=== PATIENT | female | born 1985 | race Caucasian/White ===

== ENCOUNTER 2024-05-23 06:28 | Emergency (ER) | payer OTHER ==
[2024-05-23 06:38] VITALS: TEMP 98
[2024-05-23] MEDS ORDERED: Sodium Chloride 0.9% 1000 ML 1,000 ML ONE (07:57)
[2024-05-23] MEDS ORDERED: Reglan 10 MG/2 ML ONE (07:57)
[2024-05-23] MEDS ORDERED: ANTIVERT 25 MG ONE (07:57)
[2024-05-23] MEDS: Sodium Chloride 0.9% 1000 ML 1,000 ML IV STA (08:01)
[2024-05-23] MEDS: Reglan 10 MG/2 ML IV ONE (08:01)
[2024-05-23] MEDS: ANTIVERT 25 MG PO ONE (08:01)
[2024-05-23 08:27] LABS: Absolute Neutrophil Ct (ANC) 4.28 x10^3/uL (1.56-6.13); BASOPHIL % 0.5 % (0.1-1.2); Basophil (Absolute #) 0.03 x10^3/uL (0.01-0.08); Eosinophil % 1.2 % (0.7-5.8); Eosinophil (Absolute #) 0.07 x10^3/uL (0.04-0.36); Hematocrit 40.2 % (34.1-44.9); Hemoglobin 13.7 g/dL (11.2-15.7); IMMATURE GRAN # 0.02 x10^3u/L (0.001-0.031); IMMATURE GRAN % 0.3 % (0.001-0.429); Lymphocyte (Absolute #) 1.19 x10^3/uL (1.18-3.74); Lymphocytes % 19.9 % (19.3-51.7); Mean Cell Volume 88.9 fL (79.4-94.8); Mean Corpuscular Hemoglobin 30.3 pg (25.6-32.2); Mean Corpuscular Hgb Concent. 34.1 g/dL (32.2-35.5); Mean Platelet Volume 9.8 fL (9.4-12.3); Monocyte (Absolute #) 0.38 x10^3/uL (0.24-0.86); Monocytes % 6.4 % (4.7-12.5); Neutrophil % 71.7 % (34.0-71.1); Platelet Count 258 x10^3/uL (182-369); Red Blood Count 4.52 x10^6/uL (3.93-5.22); Red Cell Distribution Width 11.9 % (11.7-14.4)
[2024-05-23 08:32] LABS: Appearance Clear (Clear); Bacteria Few /HPF (None Seen); Bilirubin Negative (Negative); Blood Negative (Negative); Epithelial Cells Few /HPF (None Seen); Glucose, Urine Negative (Negative); Hyaline Casts NONE SEEN /LPF (0-2); Ketones Negative (Negative); Leukocyte Esterase Negative (Negative); Nitrite Negative (Negative); Ph 6.5 (4.6-8.0); Protein,Urine Dip Negative (Negative); RBC 0-2 /HPF (0-5); Urobilinogen 0.2 mg/dL (0.2)
[2024-05-23 08:35] LABS: ADD URINE CULTURE? NO (NO)
[2024-05-23 08:38] LABS: ALBUMIN 4.3 g/dL (3.5-5.0); ANION GAP 12.9 MEQ/L (5-15); BILIRUBIN,TOTAL 0.5 mg/dL (0.2-1.3); Calcium 9.4 mg/dL (8.4-10.2); Creatinine 1 0.68 mg/dL (0.52-1.04); EST GLOMERULAR FILTRATION RATE 114.3 ML/MIN; MAGNESIUM 1.9 mg/dL (1.6-2.3); Potassium 3.9 mmol/L (3.5-5.1); Total Protein 7.2 g/dL (6.3-8.2)
[2024-05-23 09:29] VITALS: RESP 17; O2SAT 98
--- NOTE | 2024-05-23 09:30 | XRAY ---
Indication: Dizziness. Multiple contiguous axial images obtained through the head without contrast. Comparison: None Normal appearing brain parenchyma, ventricles, and bony calvarium. Visualized paranasal sinuses and mastoid air cells are clear. Impression: Normal CT head without contrast exam.
--- NOTE | 2024-05-23 10:06 | ERPHSYRPT ---
- History of Present Illness Time Seen by Provider: 05/23/24 08:03 Source: patient, family Exam Limitations: no limitations Patient Subjective Stated Complaint: woke up with dizziness Triage Nursing Assessment: Pt ambulated into ER room 8 with SBA by her spouse. Pt alert and oriented x4. Pt woke up at 5:40 am today with severe dizziness. Pt states, "I had to hold onto the wall to walk I was so dizzy". Pt denies any pain, denies headache. Pt is having some nausea when moving quickly, denies any vomiting. Physician History: 38 years old fairly healthy female presented in the ER with complaint of vertigo. Patient report feeling dizzy/spinning sensation since she woke up around 5:40 AM today. Dizziness/vertiginous symptoms got worse with rapid movements of the head, getting up and better with lying in the bed. Patient reports room spinning sensation but not spinning herself. Denies any numbness tingling or focal weakness. Denies any headache. Does have remote history of vertigo. Denies any chest pain palpitations or shortness of breath associated with it. No blurry vision or difficulty speech. Reports associated nausea but no vomiting. Allergies/Adverse Reactions: acetaminophen [From Darvocet-N] Allergy (Intermediate, Verified 05/23/24 06:39) Hives propoxyphene [From Darvocet-N] Allergy (Intermediate, Verified 05/23/24 06:39) Hives Hx Tetanus, Diphtheria Vaccination/Date Given: Yes Hx Influenza Vaccination/Date Given: No Hx Pneumococcal Vaccination/Date Given: No Travel Risk - International Travel Have you traveled outside of the country in past 3 weeks: No - Emerging Infectious Disease Are you exhibiting symptoms associated with any current EIDs: No - Review of Systems Constitutional: No Symptoms Eyes: No Symptoms Ears, Nose, & Throat: No Symptoms Respiratory: No Symptoms Cardiac: No Symptoms Abdominal/Gastrointestinal: Nausea Genitourinary Symptoms: No Symptoms Musculoskeletal: No Symptoms Skin: No Symptoms Neurological: Dizziness Endocrine: No Symptoms Hematologic/Lymphatic: No Symptoms Immunological/Allergic: No Symptoms - Past Medical History Pertinent Past Medical History: Yes Neurological History: Migraines ENT History: No Pertinent History Cardiac History: No Pertinent History Respiratory History: No Pertinent History Endocrine Medical History: No Pertinent History Musculoskeletal History: No Pertinent History GI Medical History: GERD History: No Pertinent History Psycho-Social History: No Pertinent History Female Reproductive Disorders: No Pertinent History - Past Surgical History Past Surgical History: No - Female History Hx Last Menstrual Period: 2 weeks ago Hx Now: No - Social History Smoking Status: Never smoker Exposure to second hand smoke: No Drug Use: none - Social Determinants of Health Will the patient participate in the screening: Yes Do you worry about a steady place to live?: No Do you have any problems with any of the following?: No known problems In the past 12 months,have you had to go without utilities?: No Transportation Issues: No Has anyone in your support network made you feel unsafe?: No Have you or anyone in your house had to go without enough: No - Nursing Vital Signs Nursing Vital Signs: Initial Vital Signs Temperature 98.0 F 05/23/24 06:37 Pulse Rate 81 05/23/24 06:37 Respiratory Rate 18 05/23/24 06:37 Blood Pressure 128/63 05/23/24 06:37 O2 Sat by Pulse Oximetry 99 05/23/24 06:37 Pain Scale Pain Intensity 0 - [place] Scale Best Eye Response ([place]): (4) open spontaneously Best Verbal Response ([place]): (5) oriented Best Motor Response ([place]): (6) obeys commands Jul[place] Total: 15 - Physical Exam General Appearance: no apparent distress, alert Eye Exam: bilateral eye: normal inspection, PERRL, EOMI Ears, Nose, Throat Exam: normal ENT inspection Neck Exam: normal inspection, non-tender, supple, full range of motion Respiratory: normal breath sounds, lungs clear Cardiovascular: regular rate/rhythm, normal heart sounds Gastrointestinal: soft, normal bowel sounds, No tenderness Back Exam: normal inspection Extremity Exam: normal inspection, normal range of motion, pelvis stable Mental Status: alert, oriented x 3, 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 Exam: normal hearing, normal speech, PERRL Coordination/Gait: normal finger to nose, normal gait, normal cerebellar function, negative Romberg's sign Motor/Sensory: no motor deficit, no sensory deficit, no pronator drift, negative Babinski's sign DTR: bicep (R): 2+, bicep (L): 2+, knee (R): 2+, knee (L): 2+ Skin Exam: normal color SpO2 Interpretation: normal SpO2: 98 O2 Delivery: Room Air - Course EKG Interpreted by Me: RATE ([id number]), Sinus Rhythm, NORMAL AXIS, NORMAL INTERVALS, NORMAL QRS Ordered Tests: Active Orders 24 hr Category Date Time Status Kitchen Cleaner STAT Care 05/23/24 07:51 Completed EKG-ER Only STAT Care 05/23/24 07:50 Completed Orthostatic Vital Signs STAT Care 05/23/24 07:50 Completed Pulse Oximetry (ED) STAT Care 05/23/24 07:50 Completed HEAD WITHOUT CONTRAST [CT] Stat Exams 05/23/24 07:50 Completed CBC W DIFF Stat Lab 05/23/24 08:10 Completed CMP Stat Lab 05/23/24 08:10 Completed MAGNESIUM Stat Lab 05/23/24 08:10 Completed TROPONIN Q4H Lab 05/23/24 08:10 Completed UA W/RFX UR CULTURE Stat Lab 05/23/24 08:23 Completed Medication Summary Discontinued Medications Generic Name Dose Route Start Last Admin Trade Name Freq PRN Reason Stop Dose Admin Sodium Chloride 1,000 mls @ 999 mls/hr 05/23/24 07:50 05/23/24 09:23 Sodium Chloride 0.9% 1000 Ml IV 05/23/24 08:50 Infused .Q1H1M STA Infusion Sodium Chloride Confirm 05/23/24 07:57 Sodium Chloride 0.9% 1000 Ml Administered 05/23/24 07:58 Dose 1,000 mls @ ud .ROUTE .STK-MED ONE Meclizine HCl 25 mg 05/23/24 07:56 05/23/24 08:01 Meclizine Hcl 25 Mg Tablet PO 05/23/24 07:57 25 mg STAT ONE Administration Meclizine HCl Confirm 05/23/24 07:57 Meclizine Hcl 25 Mg Tablet Administered 05/23/24 07:58 Dose 25 mg .ROUTE .STK-MED ONE Metoclopramide HCl 10 mg 05/23/24 07:50 05/23/24 08:01 Metoclopramide Hcl 10 Mg/2 Ml Vial IV 05/23/24 07:51 10 mg STAT ONE Administration Metoclopramide HCl Confirm 05/23/24 07:57 Metoclopramide Hcl 10 Mg/2 Ml Vial Administered 05/23/24 07:58 Dose 10 mg .ROUTE .STK-MED ONE Lab/Rad Data: Laboratory Result Diagrams 05/23/24 08:10 05/23/24 08:10 Laboratory Results 05/23/24 05/23/24 05/23/24 Range/Units 08:23 08:10 08:10 WBC (3.98-10.04) x10^3/uL RBC (3.93-5.22) x10^6/uL Hgb (11.2-15.7) g/dL Hct (34.1-44.9) % MCV (79.4-94.8) fL MCH (25.6-32.2) pg MCHC (32.2-35.5) g/dL RDW (11.7-14.4) % Plt Count (182-369) x10^3/uL MPV (9.4-12.3) fL Gran % (34.0-71.1) % Immature Gran % (Auto) (0.001-0.429) % Nucleat RBC Rel Count (0.00-0.2) % Eos # (Auto) (0.04-0.36) x10^3/uL Immature Gran # (Auto) (0.001-0.031) x10^3u/L Absolute Lymphs (auto) (1.18-3.74) x10^3/uL Absolute Monos (auto) (0.24-0.86) x10^3/uL Absolute Nucleated RBC (0.00-0.012) x10^3u/L Lymphocytes % (19.3-51.7) % Monocytes % (4.7-12.5) % Eosinophils % (0.7-5.8) % Basophils % (0.1-1.2) % Absolute Granulocytes (1.56-6.13) x10^3/uL Basophils # (0.01-0.08) x10^3/uL Sodium 139 (135-145) mmol/L Potassium 3.9 (3.5-5.1) mmol/L Chloride 107 (98-107) mmol/L Carbon Dioxide 24 (22-30) mmol/L Anion Gap 12.9 (5-15) MEQ/L BUN 14 (7-17) mg/dL Creatinine 0.68 (0.52-1.04) mg/dL Estimated GFR 114.3 ML/MIN Glucose 103 (74-106) mg/dL Calcium 9.4 (8.4-10.2) mg/dL Magnesium 1.9 (1.6-2.3) mg/dL Total Bilirubin 0.50 (0.2-1.3) mg/dL AST 22 (14-36) U/L ALT 16 (0-35) U/L Alkaline Phosphatase 61 (38-126) U/L Troponin I < 0.012 (0.000-0.033) ng/mL Serum Total Protein 7.2 (6.3-8.2) g/dL Albumin 4.3 (3.5-5.0) g/dL Urine Color Yellow (Yellow) Urine Appearance Clear (Clear) Urine pH 6.5 (4.6-8.0) Ur Specific [place] 1.020 (1.005-1.030) Urine Protein Negative (Negative) Urine Glucose (UA) Negative (Negative) mg/dL Urine Ketones Negative (Negative) Urine Blood Negative (Negative) Urine Nitrite Negative (Negative) Urine Bilirubin Negative (Negative) Urine Urobilinogen 0.2 (0.2) mg/dL Ur Leukocyte Esterase Negative (Negative) U Hyaline Cast (Auto) NONE SEEN (0-2) /LPF Urine Microscopic RBC 0-2 (0-5) /HPF Urine Microscopic WBC 6-10 A (0-5) /HPF Ur Epithelial Cells Few (None Seen) /HPF Urine Bacteria Few A (None Seen) /HPF Urine Culture Reflexed NO (NO) 05/23/24 Range/Units 08:10 WBC 6.0 (3.98-10.04) x10^3/uL RBC 4.52 (3.93-5.22) x10^6/uL Hgb 13.7 (11.2-15.7) g/dL Hct 40.2 (34.1-44.9) % MCV 88.9 (79.4-94.8) fL MCH 30.3 (25.6-32.2) pg MCHC 34.1 (32.2-35.5) g/dL RDW 11.9 (11.7-14.4) % Plt Count 258 (182-369) x10^3/uL MPV 9.8 (9.4-12.3) fL Gran % 71.7 H (34.0-71.1) % Immature Gran % (Auto) 0.3 (0.001-0.429) % Nucleat RBC Rel Count 0.0 (0.00-0.2) % Eos # (Auto) 0.07 (0.04-0.36) x10^3/uL Immature Gran # (Auto) 0.02 (0.001-0.031) x10^3u/L Absolute Lymphs (auto) 1.19 (1.18-3.74) x10^3/uL Absolute Monos (auto) 0.38 (0.24-0.86) x10^3/uL Absolute Nucleated RBC 0.00 (0.00-0.012) x10^3u/L Lymphocytes % 19.9 (19.3-51.7) % Monocytes % 6.4 (4.7-12.5) % Eosinophils % 1.2 (0.7-5.8) % Basophils % 0.5 (0.1-1.2) % Absolute Granulocytes 4.28 (1.56-6.13) x10^3/uL Basophils # 0.03 (0.01-0.08) x10^3/uL Sodium (135-145) mmol/L Potassium (3.5-5.1) mmol/L Chloride (98-107) mmol/L Carbon Dioxide (22-30) mmol/L Anion Gap (5-15) MEQ/L BUN (7-17) mg/dL Creatinine (0.52-1.04) mg/dL Estimated GFR ML/MIN Glucose (74-106) mg/dL Calcium (8.4-10.2) mg/dL Magnesium (1.6-2.3) mg/dL Total Bilirubin (0.2-1.3) mg/dL AST (14-36) U/L ALT (0-35) U/L Alkaline Phosphatase (38-126) U/L Troponin I (0.000-0.033) ng/mL Serum Total Protein (6.3-8.2) g/dL Albumin (3.5-5.0) g/dL Urine Color (Yellow) Urine Appearance (Clear) Urine pH (4.6-8.0) Ur Specific [place] (1.005-1.030) Urine Protein (Negative) Urine Glucose (UA) (Negative) mg/dL Urine Ketones (Negative) Urine Blood (Negative) Urine Nitrite (Negative) Urine Bilirubin (Negative) Urine Urobilinogen (0.2) mg/dL Ur Leukocyte Esterase (Negative) U Hyaline Cast (Auto) (0-2) /LPF Urine Microscopic RBC (0-5) /HPF Urine Microscopic WBC (0-5) /HPF Ur Epithelial Cells (None Seen) /HPF Urine Bacteria (None Seen) /HPF Urine Culture Reflexed (NO) - Progress Progress: improved, re-examined Progress Note: 05/23/24 10:04 38 years old is evaluated in the ER for peripheral vertiginous symptoms. Patient has nonfocal neuroexam, her symptoms are reproducible with movements. Negative neuroexam including cerebellar signs. CT head is negative. EKG is normal sinus rhythm with no acute ischemic changes. Normal white count, unremarkable chemistries including troponin. Given fluids and symptomatic treatment with Reglan and meclizine, on reevaluation she is symptom-free. I do not think patient needs MRI as her symptoms seems to be peripheral. Will give a prescription of meclizine to go home. Discussed signs symptoms of worsening ne maren return to ER which she seemed understanding. Stable for discharge. Counseled pt/family regarding: lab results, diagnosis, need for follow-up, rad results Medical Desision Making - Independent Historian Additional History obtained from: Spouse - Diagnostic Testing Diagnostic test were ordered, analyzed, and reviewed by me: Yes Radiological Interpretation: Reviewed by me - Risk of complications The pt has a mod risk of morbidity or mortality based on: Need for prescription drug management - Departure Departure Disposition: Home Clinical Impression: Peripheral vertigo Condition: Stable Critical Care Time: No Referrals: BREANNE CHAUDHARY [Primary Care Provider] - Follow up with PCP 1 day Instructions: Vertigo (a Type of Dizziness) (DC) Additional Instructions: Plenty of fluids to keep yourself well-hydrated. Take meclizine as needed. Follow-up with primary care for reevaluation. Return to ER for any worsening of dizziness, lightheadedness or if having chest pain palpitation/shortness of spenser th etc. Prescriptions: Meclizine HCl 25 mg [Antivert 25 mg] 25 mg PO Q8HPRN PRN #12 tablet PRN Reason: Dizziness
[2024-05-23 10:10] VITALS: PULSE 68
[2024-05-23 10:20] VITALS: BP 107/67
== END 2024-05-23 10:19 | disposition home or self-care (01) ==
LOC: ED 06:28 → EDBD 06:28 → ED 10:19
DX: H81.399 Other peripheral vertigo, unspecified ear (principal); R11.0 Nausea; Z79.899 Other long term (current) drug therapy
CPT/HCPCS: 36000; 36415; 70450; 80053; 81001; 83735; 84484; 85025; 93005; 93041; 94760; 96360; 96374; 99284; A9270-GY

== ENCOUNTER 2025-07-28 09:31 | Emergency (ER) | payer OTHER ==
[2025-07-28 09:54] VITALS: TEMP 97.6
[2025-07-28] MEDS ORDERED: Zofran 4 MG/2 ML VIAL ONE ×2 (10:16→12:11)
[2025-07-28] MEDS ORDERED: BENADRYL 50 MG/ML ONE (10:16)
[2025-07-28] MEDS: Zofran 4 MG/2 ML VIAL IV ONE ×2 (10:20→12:14)
[2025-07-28] MEDS: BENADRYL 50 MG/ML IV ONE (10:22)
--- NOTE | 2025-07-28 10:22 | ERPHSYRPT ---
- History of Present Illness Time Seen by Provider: 07/28/25 09:40 Source: patient Patient Subjective Stated Complaint: C/O N/V diarrhea since , 07/24/25. Had chemo treatments on 07/25/25 Triage Nursing Assessment: Patient ambulated back to ER. She is alert and oriented. Pale. Lips are dry and cracked. NO SOB. Denies pain but states, "my stomach is a bit sore" indicating the muscles from vomitting. SANG HOLLY. Physician History: This is a 40-year-old female with stage III melanoma who had immunotherapy Monday 3 days ago and has been having nausea vomiting and watery diarrhea profusely. No focal abdominal pain. No fever or chills. has had some similar symptoms without diarrhea. His symptoms have resolved. No other sick contacts. Patient completed a Medrol dose pack over a week ago. Not on current steroids. No chest pain or shortness of breath. Patient does note that she recently had low potassium and was diagnosed with hyperthyroid and started on medication but has not been able to keep them down. Allergies/Adverse Reactions: acetaminophen [From Darvocet-N] Allergy (Intermediate, Verified 07/28/25 09:46) Hives propoxyphene [From Darvocet-N] Allergy (Intermediate, Verified 07/28/25 09:46) Hives Home Medications: ALPRAZolam [Alprazolam] 0.5 mg PO TID PRN 07/28/25 [History] Ibuprofen 200 mg [Motrin 200 mg] 200 mg PO Q6H PRN PRN 07/28/25 [History] Levothyroxine Sodium 50 Mcg [Synthroid 50 Mcg] 50 mcg PO DAILY 07/28/25 [History] Potassium Chloride 20 meq PO DAILY 07/28/25 [History] Prochlorperazine Maleate [Compazine] 10 mg PO Q6H PRN PRN 07/28/25 [History] ondansetron HCL [Ondansetron HCl] 8 mg PO Q8H PRN PRN 07/28/25 [History] Hx Tetanus, Diphtheria Vaccination/Date Given: Yes Hx Influenza Vaccination/Date Given: No Hx Pneumococcal Vaccination/Date Given: No Immunizations Up to Date: Yes Travel Risk - International Travel Have you traveled outside of the country in past 3 weeks: No - Emerging Infectious Disease Are you exhibiting symptoms associated with any current EIDs: Yes Symptoms: Diarrhea, Vomitting - Review of Systems All Other Systems: Reviewed and Negative (As per HPI otherwise negative) - Past Medical History Pertinent Past Medical History: Yes Neurological History: Migraines ENT History: No Pertinent History Cardiac History: No Pertinent History Respiratory History: No Pertinent History Musculoskeletal History: No Pertinent History GI Medical History: GERD History: No Pertinent History Psycho-Social History: No Pertinent History Female Reproductive Disorders: No Pertinent History Other Medical History: Melonamo with mets - Past Surgical History Past Surgical History: Yes Other Surgical History: lymph nodes removed near groin - Female History Hx Last Menstrual Period: One week ago Hx Now: No - Social History Smoking Status: Never smoker Exposure to second hand smoke: No Drug Use: none - Social Determinants of Health Will the patient participate in the screening: Yes Do you worry about a steady place to live?: No Do you have any problems with any of the following?: No known problems In the past 12 months,have you had to go without utilities?: No Transportation Issues: No Has anyone in your support network made you feel unsafe?: No Have you or anyone in your house had to go w/o enough food: No - Nursing Vital Signs Nursing Vital Signs: Initial Vital Signs Temperature 97.6 F 07/28/25 09:40 Pulse Rate 116 H 07/28/25 09:40 Respiratory Rate 23 07/28/25 09:40 Blood Pressure 134/86 07/28/25 09:40 O2 Sat by Pulse Oximetry 97 07/28/25 09:40 Pain Scale Pain Intensity 0 - Physical Exam SpO2: 97 Comments: 07/28/25 10:26 General: Well-nourished well-developed. No apparent distress. HEENT: Normocephalic atraumatic no obvious facial or neck deformity or injury. Dry mucous membranes. Neck: Supple. No deformity or mass noted. CV: RRR NL Perfusion. No edema Resp: No Respiratory distress or adventitious breath sounds Abd: ND SNT MSK: No deformity or TTP Neuro: Alert and Maynard x4. No gross focal neurologic changes Psych: No SI, HI or grave disability Ordered Tests: Active Orders 24 hr Category Date Time Status CBC W DIFF Stat Lab 07/28/25 10:00 Completed CMP Stat Lab 07/28/25 10:00 Completed MAGNESIUM Stat Lab 07/28/25 10:00 Completed Manual Differential NC Stat Lab 07/28/25 10:00 Completed TSH, 3RD Generation Stat Lab 07/28/25 10:00 Completed Medication Summary Generic Name Dose Route Start Last Admin Trade Name Freq PRN Reason Stop Dose Admin Potassium Chloride 20 meq in 100 mls @ 50 mls/hr 07/28/25 10:27 07/28/25 10:37 Potassium Chloride 20 Meq In Water 100ml IV 07/28/25 12:26 50 mls/hr STAT ONE Administration Sodium Chloride 1,000 mls @ 500 mls/hr 07/28/25 11:30 07/28/25 11:33 Sodium Chloride 0.9% 1000 Ml IV 07/28/25 13:00 500 mls/hr .Q2H LEANNE Administration Discontinued Medications Generic Name Dose Route Start Last Admin Trade Name Isaccq PRN Reason Stop Dose Admin Diphenhydramine HCl 25 mg 07/28/25 10:15 07/28/25 10:22 Diphenhydramine Hcl 50 Mg/Ml Vial IV 07/28/25 10:16 25 mg STAT ONE Administration Diphenhydramine HCl Confirm 07/28/25 10:16 Diphenhydramine Hcl 50 Mg/Ml Vial Administered 07/28/25 10:17 Dose 50 mg .ROUTE .STK-MED ONE Sodium Chloride 1,000 mls @ 999 mls/hr 07/28/25 10:15 07/28/25 11:24 Sodium Chloride 0.9% 1000 Ml IV 07/28/25 11:15 Infused .Q1H1M STA Infusion Sodium Chloride Confirm 07/28/25 10:16 Sodium Chloride 0.9% 1000 Ml Administered 07/28/25 10:17 Dose 1,000 mls @ ud .ROUTE .STK-MED ONE Potassium Chloride Confirm 07/28/25 10:33 Potassium Chloride 20 Meq In Water 100ml Administered 07/28/25 10:34 Dose 100 mls @ ud IV .STK-MED ONE Ondansetron HCl 4 mg 07/28/25 10:15 07/28/25 10:20 Ondansetron Hcl 4 Mg/2 Ml Vial IV 07/28/25 10:16 4 mg STAT ONE Administration Ondansetron HCl Confirm 07/28/25 10:16 Ondansetron Hcl 4 Mg/2 Ml Vial Administered 07/28/25 10:17 Dose 4 mg .ROUTE .[facility] ONE Lab/Rad Data: Laboratory Result Diagrams 07/28/25 10:00 07/28/25 10:00 Laboratory Results 07/28/25 07/28/25 07/28/25 Range/Units 10:00 10:00 10:00 WBC 13.8 H (3.98-10.04) x10^3/uL RBC 5.77 H (3.93-5.22) x10^6/uL Hgb 17.0 H (11.2-15.7) g/dL Hct 52.1 H (34.1-44.9) % MCV 90.3 (79.4-94.8) fL MCH 29.5 (25.6-32.2) pg MCHC 32.6 (32.2-35.5) g/dL RDW 15.0 H (11.7-14.4) % Plt Count 346 (182-369) x10^3/uL MPV 10.0 (9.4-12.3) fL Segmented Neutrophils 55 (34.0-71.1) % Band Neutrophils 19 H (0.0-2.0) % Lymphocytes (Manual) 7 L (19.3-51.7) % Monocytes (Manual) 17 H (4.7-12.5) % Eosinophils (Manual) 2 (0.7-5.8) % Platelet Estimate NORMAL (NORMAL) RBC Morphology NORMAL Sodium 138 (135-145) mmol/L Potassium 4.1 (3.5-5.1) mmol/L Chloride 103 (98-107) mmol/L Carbon Dioxide 17 L (22-30) mmol/L Anion Gap 22.0 H (5-15) MEQ/L BUN 12 (7-17) mg/dL Creatinine 0.92 (0.52-1.04) mg/dL Estimated GFR 80.7 ML/MIN Glucose 126 H (74-106) mg/dL Calcium 8.9 (8.4-10.2) mg/dL Magnesium 2.0 (1.6-2.3) mg/dL Total Bilirubin 0.40 (0.2-1.3) mg/dL AST 24 (14-36) U/L ALT 20 (0-35) U/L Alkaline Phosphatase 105 (38-126) U/L Serum Total Protein 7.3 (6.3-8.2) g/dL Albumin 4.1 (3.5-5.0) g/dL Free T4 0.21 L (0.78-2.19) ng/dL TSH 3rd Generation 46.561 H (0.470-4.680) mIU/L - Progress Progress: improved Progress Note: 07/28/25 11:56 Patient likely having symptoms due to her immunotherapy vs possible infectious causes had some similar symptoms.. Her electrolytes appear normal and the potassium initially started because of the long time it takes to infuse will be discontinued. She predictably received approximately 10 mill equivalents and is not considered clinically significant. She had reported that she was hypokalemic on K+ supplement so she may have repleted ther low state. Her TSH however is greatly elevated with a depressed T4. She was started on Synthroid and will need to take this. She otherwise is has a nonacute abdomen and can call her oncologist upon discharge. She was given 2 L of IV fluids for dehydration. Noted metabolic acidosis consistent with patient's hyperemesis. She does not appear to have any significant underlying cause for this other than the vomiting. Plan for discharge when IV fluid complete with home Zofran. 07/28/25 11:58 07/28/25 11:58 07/28/25 12:03 Noted repeat blood pressure systolic of 110 with heart rate in the 80s. Patient doing very well. 07/28/25 12:04 The patient's condition was discussed with themselves and/or family members in great detail. Precautions are given and need to return or call 911 immediately for any changes or worsening are discussed. Instructions on patient's condition and noting that conditions can change or worsen and that diagnosis are presumptive and can evolve are discussed. All questions were answered. All concerns addressed at this time - Departure Departure Disposition: Home Clinical Impression: Hyperemesis, Diarrhea, Dehydration, Hypothyroidism Condition: Stable Critical Care Time: No Referrals: SARI MONTES MD [Primary Care Provider, ONCOLOGY] - Follow up/PCP as directed Instructions: Nausea -- Adult, Vomiting -- Adult, Dehydration in adults - ED discharge instructions, Hypothyroidism (underactive thyroid) Additional Instructions: Call your oncologist today upon discharge to arrange close follow-up. Your potassium and magnesium were in the normal range so any further replacement would not be necessary. You do have evidence of dehydration. Nausea and vomiting will be sent home on vomiting medication. Is important you follow-up closely with your oncologist as noted. Your thyroid level is noted to be very low meaning you do need to be taking replacement with Synthroid as been as been prescribed. Closely follow this with your doctor. You have been evaluated for an emergency medical condition. At this time, given the current history and events presented, the examination conducted and any possible testing you may have had, you have been given a presumptive diagnosis based on the current information is obtained. Your discharge diagnosis is presumptive and not necessarily definitive. Medical conditions present in various stages very often without all the symptoms or findings described in medical literature. Other symptoms, concerns or conditions may arise and your diagnoses may evolve or change and/or your condition could potentially worsen after the time of disposition or discharge. You have been given a presumptive diagnosis and your condition appears to be stable, but your medical issues can change or worsen. If there is worsening of your condition including difficulty breathing, swallowing, speaking, chest pain or pressure, intractable vomiting, worsening or changing mental status, numbness, tingling or weakness of your body or arms or legs, thoughts or plans of harming yourself or others, or any other concerns, call 911 and/or return immediately to the closest emergency department. It is important you follow-up with your doctor on the next business day. Call your doctor, or the referral provided if you do not have a doctor, when they open to schedule a follow-up appointment in the next 1 or latest 2 days. Please refer to the attached sheet. If you do not have primary care doctor, you can call the [facility] referral line at [phone]. Return immediately if your symptoms worsen or if you are unable to obtain further care. My team and I thank you for choosing the [facility] Emergency Department emergency healthcare needs. We wish you a speedy recovery. Very respectfully, Dr. Cassia Wagner M.D. [place] [employer] Medicine Board-certified Emergency Physician Prescriptions: Ondansetron ODT 4 MG [Zofran Odt 4 mg] 4 mg PO Q8H PRN #20 tablet PRN Reason: Nausea/Vomiting
[2025-07-28 10:29] LABS: Hematocrit 52.1 % (34.1-44.9); Hemoglobin 17.0 g/dL (11.2-15.7); Mean Corpuscular Hemoglobin 29.5 pg (25.6-32.2); Mean Corpuscular Hgb Concent. 32.6 g/dL (32.2-35.5); Platelet Count 346 x10^3/uL (182-369); Red Blood Count 5.77 x10^6/uL (3.93-5.22); White Blood Count 13.8 x10^3/uL (3.98-10.04)
[2025-07-28] MEDS ORDERED: POTASSIUM CHLORIDE 20 mEq IN WATER 100ML 100 ML IV ONE (10:33)
[2025-07-28] MEDS: POTASSIUM CHLORIDE 20 mEq IN WATER 100ML 20 MEQ/100 ML BAG IV ONE (10:37)
[2025-07-28 11:13] LABS: Calcium 8.9 mg/dL (8.4-10.2); Carbon Dioxide 17.0 mmol/L (22-30); Creatinine 1 0.92 mg/dL (0.52-1.04); EST GLOMERULAR FILTRATION RATE 80.7 ML/MIN; Glucose 126.0 mg/dL (74-106); Potassium 4.1 mmol/L (3.5-5.1); SGOT/AST 24.0 U/L (14-36); SGPT/ALT 20.0 U/L (0-35); Total Protein 7.3 g/dL (6.3-8.2)
[2025-07-28 11:42] LABS: BAND 19 % (0.0-2.0); Total Cells Counted 100
[2025-07-28] MEDS ORDERED: MORPHINE SULFATE 4 MG INJ ONE (12:11)
[2025-07-28] MEDS: MORPHINE SULFATE 4 MG INJ IV ONE (12:14)
[2025-07-28 12:39] VITALS: O2SAT 99
[2025-07-28 13:09] VITALS: BP 103/58; PULSE 84; RESP 23
== END 2025-07-28 13:49 | disposition home or self-care (01) ==
LOC: ED 09:31
DX: R11.2 Nausea with vomiting, unspecified (principal); R19.7 Diarrhea, unspecified; E86.0 Dehydration; E03.9 Hypothyroidism, unspecified; Z79.899 Other long term (current) drug therapy

== ENCOUNTER 2025-08-01 16:58 | Observation (INO) | payer OTHER ==
--- NOTE | 2025-08-01 17:01 | ERPHSYRPT ---
- History of Present Illness Time Seen by Provider: 08/01/25 17:01 Historian: patient Exam Limitations: no limitations Physician History: This a 40-year-old white female patient brought in by private vehicle accompanied by her spouse with nausea, vomiting and watery diarrhea. Patient has stage III skin melanoma (mets present) and has had 3 doses of immunotherapy. The most recent dose was 1 week ago. Patient was seen in our emergency department 4 days ago on diagnosed with hyperemesis, dehydration, hypothyroidism and diarrhea. I reviewed that hospital emergency department stay. Patient felt better for approximately 2 days but then began having symptoms that worsened today. Patient's primary care provider and oncologist are out of the [facility] system. Patient does have a history of hypothyroidism. Those values were off on the last visit. Patient was able to take her Synthroid the last 4 days and the most recent tablet this morning and held it down. Patient has a history of migraine headache and gastroesophageal reflux disease. Patient denies chest pain and she denies shortness of breath. Timing/Duration: day(s) (Symptoms intermittently for several days), worse (Symptoms worse today) Quality: cramping (Mild generalized) Abdominal Pain Onset Location: generalized abdomen Pain Radiation: no radiation Severity of Pain-Max: mild Severity of Pain-Current: mild Modifying Factors: Improves With: vomiting, other (Watery diarrhea) Associated Symptoms: diarrhea, loss of appetite, nausea, vomiting, weakness Previous symptoms: same symptoms as today, recently seen, recently treated Allergies/Adverse Reactions: acetaminophen [From Darvocet-N] Allergy (Intermediate, Verified 08/01/25 17:10) Hives propoxyphene [From Darvocet-N] Allergy (Intermediate, Verified 08/01/25 17:10) Hives Home Medications: ALPRAZolam [Alprazolam] 0.5 mg PO TID PRN 07/28/25 [History] Ibuprofen 200 mg [Motrin 200 mg] 200 mg PO Q6H PRN PRN 07/28/25 [History] Levothyroxine Sodium 50 Mcg [Synthroid 50 Mcg] 50 mcg PO DAILY 07/28/25 [History] Potassium Chloride 20 meq PO DAILY 07/28/25 [History] ondansetron HCL [Ondansetron HCl] 8 mg PO Q8H PRN PRN 07/28/25 [History] Lactobacillus Rhamnosus GG [Culturelle] 1 cap PO DAILY PRN PRN 08/01/25 [History] Loperamide HCl [Imodium A-D] 2 mg PO DAILY PRN PRN 08/01/25 [History] Hx Tetanus, Diphtheria Vaccination/Date Given: Yes Hx Influenza Vaccination/Date Given: No Hx Pneumococcal Vaccination/Date Given: No Travel Risk - International Travel Have you traveled outside of the country in past 3 weeks: No - Emerging Infectious Disease Are you exhibiting symptoms associated with any current EIDs: No Symptoms: Diarrhea, Vomitting - Review of Systems Constitutional: Weakness Eyes: No Symptoms Ears, Nose, & Throat: No Symptoms Respiratory: No Symptoms Cardiac: No Symptoms Abdominal/Gastrointestinal: Abdominal Pain (Mild generalized cramping), Nausea, Vomiting, Diarrhea, Appetite Changes Genitourinary Symptoms: No Symptoms Musculoskeletal: No Symptoms Skin: No Symptoms Neurological: No Symptoms Psychological: No Symptoms Endocrine: No Symptoms Hematologic/Lymphatic: No Symptoms Immunological/Allergic: No Symptoms All Other Systems: Reviewed and Negative - Past Medical History Pertinent Past Medical History: Yes Neurological History: Migraines ENT History: No Pertinent History Cardiac History: No Pertinent History Respiratory History: No Pertinent History Musculoskeletal History: No Pertinent History GI Medical History: GERD History: No Pertinent History Psycho-Social History: No Pertinent History Female Reproductive Disorders: No Pertinent History Other Medical History: Melonamo with mets - Past Surgical History Past Surgical History: Yes Other Surgical History: lymph nodes removed near groin - Female History Hx Last Menstrual Period: 2 weeks ago - Social History Smoking Status: Never smoker Exposure to second hand smoke: No Drug Use: none - Social Determinants of Health Will the patient participate in the screening: Yes Do you worry about a steady place to live?: No In the past 12 months,have you had to go without utilities?: No Transportation Issues: No Has anyone in your support network made you feel unsafe?: No Have you or anyone in your house had to go w/o enough food: No - Nursing Vital Signs Nursing Vital Signs: Initial Vital Signs Temperature 97.4 F 08/01/25 17:02 Pulse Rate 96 H 08/01/25 17:02 Respiratory Rate 18 08/01/25 17:02 Blood Pressure 127/88 08/01/25 17:02 O2 Sat by Pulse Oximetry 97 08/01/25 17:02 Pain Scale Pain Intensity 5 - Physical Exam General Appearance: no apparent distress, alert, thin Eye Exam: PERRL/EOMI, eyes nml inspection Ears, Nose, Throat Exam: dry mucous membranes Neck Exam: normal inspection, non-tender, supple, full range of motion Respiratory Exam: normal breath sounds, lungs clear, airway intact, No chest tenderness, No respiratory distress Cardiovascular Exam: regular rate/rhythm, normal heart sounds, normal peripheral pulses Gastrointestinal/Abdomen Exam: soft, normal bowel sounds, No tenderness Pelvic Exam: not done Rectal Exam: not done Back Exam: normal inspection, normal range of motion, No CVA tenderness, No vertebral tenderness Extremity Exam: normal inspection, normal range of motion, pelvis stable Neurologic Exam: alert, oriented x 3, cooperative, oracle analyst II-XII nml as tested, nml cerebellar function, nml station & gait, sensation nml Skin Exam: normal color, warm, dry Lymphatic Exam: No adenopathy SpO2 Interpretation: normal O2 Delivery: Room Air - Course Nursing assessment & vital signs reviewed: Yes Ordered Tests: Active Orders 24 hr Category Date Time Status IV Insertion STAT Care 08/01/25 17:29 Active Telemetry q4h Care 08/01/25 18:46 Active CBC W DIFF Stat Lab 08/01/25 17:35 Completed CMP Stat Lab 08/01/25 17:35 Completed CULTURE,URINE Stat Lab 08/01/25 18:52 Received LIPASE Stat Lab 08/01/25 17:35 Completed MAGNESIUM Stat Lab 08/01/25 17:35 Completed Manual Differential NC Stat Lab 08/01/25 17:35 Completed TSH [TSH, 3RD Generation] Stat Lab 08/01/25 17:35 Completed UA W/RFX UR CULTURE Stat Lab 08/01/25 18:52 Completed Medication Summary Generic Name Dose Route Start Last Admin Trade Name Freq PRN Reason Stop Dose Admin Lactated Ringer's 1,000 mls @ 125 mls/hr 08/01/25 19:43 08/01/25 20:46 Lactated Ringers IV 08/02/25 03:42 300 mls/hr .Q8H STA Infusion Discontinued Medications Generic Name Dose Route Start Last Admin Trade Name Freq PRN Reason Stop Dose Admin Sodium Chloride 1,000 mls @ 999 mls/hr 08/01/25 17:29 08/01/25 18:36 Sodium Chloride 0.9% 1000 Ml IV 08/01/25 18:29 Infused .Q1H1M STA Infusion Sodium Chloride Confirm 08/01/25 17:34 Sodium Chloride 0.9% 1000 Ml Administered 08/01/25 17:35 Dose 1,000 mls @ ud .ROUTE .STK-MED ONE Sodium Chloride 1,000 mls @ 999 mls/hr 08/01/25 18:27 08/01/25 19:50 Sodium Chloride 0.9% 1000 Ml IV 08/01/25 19:27 Infused .Q1H1M STA Infusion Sodium Chloride Confirm 08/01/25 18:42 Sodium Chloride 0.9% 1000 Ml Administered 08/01/25 18:43 Dose 1,000 mls @ ud .ROUTE .STK-MED ONE Potassium Chloride 20 meq in 100 mls @ 50 mls/hr 08/01/25 18:46 08/01/25 18:56 Potassium Chloride 20 Meq In Water 100ml IV 08/01/25 20:45 50 mls/hr STAT ONE Administration Potassium Chloride Confirm 08/01/25 18:54 Potassium Chloride 20 Meq In Water 100ml Administered 08/01/25 18:55 Dose 100 mls @ ud IV .STK-MED ONE Lactated Ringer's Confirm 08/01/25 19:44 Lactated Ringers Administered 08/01/25 19:45 Dose 1,000 mls @ ud IV .STK-MED ONE Morphine Sulfate 4 mg 08/01/25 17:29 08/01/25 17:37 Morphine Sulfate 4 Mg/Ml Injection IV 08/01/25 17:30 4 mg STAT ONE Administration Morphine Sulfate Confirm 08/01/25 17:34 Morphine Sulfate 4 Mg/Ml Injection Administered 08/01/25 17:35 Dose 4 mg .ROUTE .STK-MED ONE Ondansetron HCl 4 mg 08/01/25 17:29 08/01/25 17:37 Ondansetron Hcl 4 Mg/2 Ml Vial IV 08/01/25 17:30 4 mg STAT ONE Administration Ondansetron HCl Confirm 08/01/25 17:33 Ondansetron Hcl 4 Mg/2 Ml Vial Administered 08/01/25 17:34 Dose 4 mg .ROUTE .STK-MED ONE Pantoprazole Sodium 40 mg 08/01/25 17:29 08/01/25 17:36 Pantoprazole 40 Mg Vial IV 08/01/25 17:30 40 mg STAT ONE Administration Pantoprazole Sodium Confirm 08/01/25 17:33 Pantoprazole 40 Mg Vial Administered 08/01/25 17:34 Dose 40 mg IV .K-MED ONE Lab/Rad Data: Laboratory Result Diagrams 08/01/25 17:35 08/01/25 17:35 Laboratory Results 08/01/25 08/01/25 08/01/25 Range/Units 18:52 17:35 17:35 WBC (3.98-10.04) x10^3/uL RBC (3.93-5.22) x10^6/uL Hgb (11.2-15.7) g/dL Hct (34.1-44.9) % MCV (79.4-94.8) fL MCH (25.6-32.2) pg MCHC (32.2-35.5) g/dL RDW (11.7-14.4) % Plt Count (182-369) x10^3/uL MPV (9.4-12.3) fL Segmented Neutrophils (34.0-71.1) % Band Neutrophils (0.0-2.0) % Lymphocytes (Manual) (19.3-51.7) % Monocytes (Manual) (4.7-12.5) % Eosinophils (Manual) (0.7-5.8) % Platelet Estimate (NORMAL) RBC Morphology Sodium (135-145) mmol/L Potassium (3.5-5.1) mmol/L Chloride (98-107) mmol/L Carbon Dioxide (22-30) mmol/L Anion Gap (5-15) MEQ/L BUN (7-17) mg/dL Creatinine (0.52-1.04) mg/dL Estimated GFR ML/MIN Glucose (74-106) mg/dL Calcium (8.4-10.2) mg/dL Magnesium (1.6-2.3) mg/dL Total Bilirubin (0.2-1.3) mg/dL AST (14-36) U/L ALT (0-35) U/L Alkaline Phosphatase (38-126) U/L Serum Total Protein (6.3-8.2) g/dL Albumin (3.5-5.0) g/dL Lipase (23-300) U/L Free T4 0.23 L (0.78-2.19) ng/dL TSH 3rd Generation 63.092 H (0.470-4.680) mIU/L Urine Color Yellow (Yellow) Urine Appearance Cloudy A (Clear) Urine pH 6.0 (4.6-8.0) Ur Specific [place] 1.020 (1.005-1.030) Urine Protein 30 (Negative) Urine Glucose (UA) Negative (Negative) mg/dL Urine Ketones Trace A (Negative) Urine Blood Large A (Negative) Urine Nitrite Negative (Negative) Urine Bilirubin Negative (Negative) Urine Urobilinogen 0.2 (0.2) mg/dL Ur Leukocyte Esterase Negative (Negative) U Hyaline Cast (Auto) 3-5 A (0-2) /LPF Urine Microscopic RBC >100 A (0-5) /HPF Urine Microscopic WBC 6-10 A (0-5) /HPF Ur Epithelial Cells Moderate A (None Seen) /HPF Urine Bacteria Few A (None Seen) /HPF Urine Culture Reflexed YES (NO) 08/01/25 08/01/25 Range/Units 17:35 17:35 WBC 22.6 H (3.98-10.04) x10^3/uL RBC 5.85 H (3.93-5.22) x10^6/uL Hgb 17.2 H (11.2-15.7) g/dL Hct 49.5 H (34.1-44.9) % MCV 84.6 (79.4-94.8) fL MCH 29.4 (25.6-32.2) pg MCHC 34.7 (32.2-35.5) g/dL RDW 15.4 H (11.7-14.4) % Plt Count 428 H (182-369) x10^3/uL MPV 9.8 (9.4-12.3) fL Segmented Neutrophils 67 (34.0-71.1) % Band Neutrophils 15 H (0.0-2.0) % Lymphocytes (Manual) 13 L (19.3-51.7) % Monocytes (Manual) 3 L (4.7-12.5) % Eosinophils (Manual) 2 (0.7-5.8) % Platelet Estimate NORMAL (NORMAL) RBC Morphology NORMAL Sodium 134 L (135-145) mmol/L Potassium 2.3 L* (3.5-5.1) mmol/L Chloride 101 (98-107) mmol/L Carbon Dioxide 19 L (22-30) mmol/L Anion Gap 17.2 H (5-15) MEQ/L BUN 12 (7-17) mg/dL Creatinine 1.15 H (0.52-1.04) mg/dL Estimated GFR 61.8 ML/MIN Glucose 139 H (74-106) mg/dL Calcium 10.1 (8.4-10.2) mg/dL Magnesium 2.1 (1.6-2.3) mg/dL Total Bilirubin 0.50 (0.2-1.3) mg/dL AST 30 (14-36) U/L ALT 30 (0-35) U/L Alkaline Phosphatase 125 (38-126) U/L Serum Total Protein 7.4 (6.3-8.2) g/dL Albumin 4.0 (3.5-5.0) g/dL Lipase 97 (23-300) U/L Free T4 (0.78-2.19) ng/dL TSH 3rd Generation (0.470-4.680) mIU/L Urine Color (Yellow) Urine Appearance (Clear) Urine pH (4.6-8.0) Ur Specific [place] (1.005-1.030) Urine Protein (Negative) Urine Glucose (UA) (Negative) mg/dL Urine Ketones (Negative) Urine Blood (Negative) Urine Nitrite (Negative) Urine Bilirubin (Negative) Urine Urobilinogen (0.2) mg/dL Ur Leukocyte Esterase (Negative) U Hyaline Cast (Auto) (0-2) /LPF Urine Microscopic RBC (0-5) /HPF Urine Microscopic WBC (0-5) /HPF Ur Epithelial Cells (None Seen) /HPF Urine Bacteria (None Seen) /HPF Urine Culture Reflexed (NO) - Progress Progress: improved, re-examined Progress Note: 08/01/25 17:45 My medical decision making is based on review of the patient's past medical history, review the patient's medication list, review the patient drug allergy list, history present illness and physical findings on examination. The workup in this patient includes placement of intravenous line, infusion of normal saline solution, infusion of morphine, infusion of Zofran, infusion of Protonix, CBC, CMP, lipase level, magnesium, urinalysis, free T4 and TSH levels. Differential diagnosis includes but is not limited to hyperemesis/side effect of immunotherapy, hypothyroidism, dehydration, diarrhea. I did review and interpret labs done on 07/28/2024 which in includes a free T4 level that is low at 0.21 and an elevated TSH level of 46.5. The patient does not have signs and symptoms consistent of myxedema crisis 08/01/25 20:[address] Jose Morrell, our telehospitalist on-call at this time. I reviewed the patient history, presenting complaint, physical findings on examination and the results of our workup. He is aware that the patient has hyperemesis likely secondary to medication, hypothyroidism likely secondary to inability to take her Synthroid/levothyroxine, hypokalemia secondary to vomiting and diarrhea. He accepts the patient to be placed in observation. We will provide her with IV hydration, intravenous and oral potassium and repeat labs in the morning. Counseled pt/family regarding: lab results, diagnosis, need for follow-up Medical Desision Making - Independent Historian Additional History obtained from: Spouse - Diagnostic Testing Diagnostic test were ordered, analyzed, and reviewed by me: Yes - Risk of complications The pt has a high risk of morbidity or mortality based on: Decision regarding hospitilization or escalation of hosp level of care - Departure Departure Disposition: Observation Clinical Impression: Hyperemesis, Hypokalemia, Dehydration, Hypothyroid Condition: Stable Critical Care Time: No Referrals: SARI MONTES MD [Primary Care Provider, ONCOLOGY] - Follow up/PCP as directed
[2025-08-01] MEDS ORDERED: Zofran 4 MG/2 ML VIAL ONE ×2 (17:33→21:24)
[2025-08-01] MEDS ORDERED: PROTONIX 40 MG IV IV ONE (17:33)
[2025-08-01] MEDS ORDERED: MORPHINE SULFATE 4 MG INJ ONE (17:34)
[2025-08-01] MEDS: PROTONIX 40 MG IV IV ONE (17:36)
[2025-08-01] MEDS: Zofran 4 MG/2 ML VIAL IV ONE ×2 (17:37→21:25)
[2025-08-01] MEDS: MORPHINE SULFATE 4 MG INJ IV ONE (17:37)
[2025-08-01 17:44] LABS: Hematocrit 49.5 % (34.1-44.9); Hemoglobin 17.2 g/dL (11.2-15.7); Mean Corpuscular Hemoglobin 29.4 pg (25.6-32.2); Mean Corpuscular Hgb Concent. 34.7 g/dL (32.2-35.5); Platelet Count 428 x10^3/uL (182-369); Red Blood Count 5.85 x10^6/uL (3.93-5.22); White Blood Count 22.6 x10^3/uL (3.98-10.04)
[2025-08-01 17:58] LABS: Calcium 10.1 mg/dL (8.4-10.2); Carbon Dioxide 19.0 mmol/L (22-30); Creatinine 1 1.15 mg/dL (0.52-1.04); EST GLOMERULAR FILTRATION RATE 61.8 ML/MIN; Glucose 139.0 mg/dL (74-106); SGOT/AST 30.0 U/L (14-36); SGPT/ALT 30.0 U/L (0-35); Total Protein 7.4 g/dL (6.3-8.2)
[2025-08-01 18:41] LABS: Potassium 2.3 mmol/L (3.5-5.1)
[2025-08-01] MEDS ORDERED: POTASSIUM CHLORIDE 20 mEq IN WATER 100ML 100 ML IV ONE ×2 (18:54→21:05)
[2025-08-01] MEDS: POTASSIUM CHLORIDE 20 mEq IN WATER 100ML 20 MEQ/100 ML BAG IV ONE ×2 (18:56→22:11)
[2025-08-01 19:42] LABS: Glucose, Urine Negative (Negative); Protein,Urine Dip 30 (Negative); RBC >100 /HPF (0-5)
[2025-08-01] MEDS ORDERED: Lactated Ringers 1,000 ML IV ONE (19:44)
[2025-08-01] MEDS: Lactated Ringers 1,000 ML IV STA (19:46)
[2025-08-01 19:52] LABS: BAND 15 % (0.0-2.0); Total Cells Counted 100
[2025-08-01 22:18] LABS: Calcium 8.4 mg/dL (8.4-10.2); Carbon Dioxide 19.0 mmol/L (22-30); Creatinine 1 0.98 mg/dL (0.52-1.04); EST GLOMERULAR FILTRATION RATE 74.8 ML/MIN; Glucose 108.0 mg/dL (74-106); SGOT/AST 24.0 U/L (14-36); SGPT/ALT 24.0 U/L (0-35); Total Protein 5.6 g/dL (6.3-8.2)
[2025-08-01 22:36] LABS: Potassium 2.6 mmol/L (3.5-5.1)
[2025-08-02] MEDS ORDERED: IBUPROFEN 200 MG PO PRN (01:12)
[2025-08-02] MEDS ORDERED: LACTOBACILLUS RHAMNOSUS GG PO PRN (01:12)
[2025-08-02] MEDS ORDERED: IMODIUM 2 MG PO PRN (01:12)
[2025-08-02] MEDS ORDERED: ONDANSETRON HCL 8 MG PO PRN (01:12)
--- NOTE | 2025-08-02 01:12 | PCM.HP ---
History of Present Illness - Chief Complaint Chief Complaint: Hyperemesis Date: 08/01/25 History of Present Illness: TELEMEDICINE H&P Patient name: Vesta MORGAN Date of : 1985 MRN: Date of consultation: 02 August 2025 Inpatient primary provider: Reason for consult: Severe vomiting and diarrhea Room: Assessment and Plan 1?. Vomiting and Diarrhea secondary to immunotherapy (acute, uncontrolled) - Admitted for severe nausea, vomiting, and diarrhea following the third treatment with Opdivo and Yervoy for stage III melanoma. - Continue IV fluid hydration. - Monitor intake and output. - Administer antiemetics as needed, including ondansetron (Zofran) and prochlorperazine. - Will advance to a clear liquid diet tomorrow if able to tolerate oral intake. 2?. Hypokalemia (acute, improving) - Potassium level was low upon admission. - Currently receiving IV potassium repletion. The infusion of 2.5 mEq is in progress. - The goal is to maintain a potassium level of 3.5 or higher. - Will repeat labs in the morning and replete with IV or oral potassium as tolerated. 3?. Hypothyroidism (acute, uncontrolled) - TSH was noted to be very low, which is unusual for a few missed doses but will be repleted. - Has been unable to take thyroid replacement medication due to vomiting. - Will restart thyroid hormone replacement once able to tolerate oral intake. - This is expected to improve symptoms of fatigue and lethargy. 4?. Leukocytosis (acute, stable) - White blood cell count was elevated at 22. - There are no fevers, chills, rashes, or other signs of systemic or localized infection such as pneumonia or UTI. - The leukocytosis is likely secondary to dehydration or as a side effect of immunotherapy. - Will monitor clinical status and repeat the complete blood count in the morning. --- Subjective: Reason for Visit: - The consultation was requested for management of severe vomiting and diarrhea, which began after receiving the third cycle of immunotherapy (Opdivo and Yervoy) for stage III melanoma on 25 July 2025. History of Present Illness: - Reports onset of severe vomiting and profuse, watery diarrhea following the third dose of immunotherapy. Was unable to tolerate any oral intake. This led to a presentation to the emergency department on Monday, where IV fluids, antiemetics, and potassium were administered before being discharged. Symptoms recurred and worsened at home, prompting a return to the emergency department as advised by their doctor. Current symptoms include abdominal tenderness, persistent nausea, lack of appetite, and ongoing watery diarrhea. Has not vomited since admission. Reports feeling very tired, exhausted, and lethargic. The first immunotherapy dose was difficult, the second was well-tolerated, and this third dose has been the most severe. Denies any abdominal pain, but notes tenderness likely from constant retching. Denies any fevers or chills. Past Medical History: - Stage III melanoma. - No other medical history reported, including no history of diabetes, hypertension, or high cholesterol. Medication History: Inpatient Medications - IV fluids - IV potassium - Ondansetron as needed - Prochlorperazine as needed Outpatient Medications - Opdivo (nivolumab) - Yervoy (ipilimumab) - Thyroid hormone replacement (missed recent doses due to vomiting) Social History: - Denies any history of smoking, alcohol use, or recreational drug use. Review of Systems: - Constitutional: Reports fatigue, exhaustion, and lethargy. Denies fevers or chills. - Cardiovascular: Denies chest pain. - Gastrointestinal: Reports nausea, abdominal tenderness, lack of appetite, and watery diarrhea. Has had episodes of severe vomiting. --- Physical examination Vital Signs - Vital signs were unremarkable. Neurological Awake, alert, and oriented. Cardiovascular Regular rate and rhythm. Normal S1 and S2 heart sounds. No jugular venous distention. Respiratory Lungs are clear to auscultation bilaterally. Abdominal Abdomen is soft and non-tender. --- Labs Reviewed - Recent laboratory results show hypokalemia and an elevated white blood cell count of 22,000/mcL. Labs also show evidence of dehydration and a very low thyroid hormone level. Independently reviewed and interpreted by me. Studies Reviewed Notes reviewed Patient consented to telemedicine and to the ambient recording of the consultation. --- Thank you for allowing me and my team participate in the care of this patient. Do not hesitate to contact me with any questions or concerns. Reno Morrell MD Tele Hospitalist Interventional/Structural/General Form Grader Operator [facility] --- MDM Summary 1. Number and Complexity of Problems Addressed (CoPA): - High Complexity: The patient presents with multiple acute problems, including severe vomiting/diarrhea with dehydration, significant electrolyte abnormalities (hypokalemia), and endocrine disruption (hypothyroidism) as a severe side effect of cancer treatment (immunotherapy). These conditions require intensive management and pose a threat to bodily function if not corrected. 2. Amount and/or Complexity of Data to be Reviewed and Analyzed (Data): - Limited: The decision-making process involved reviewing recent laboratory results (showing hypokalemia, leukocytosis, dehydration, and low thyroid hormone), which were interpreted independently. 3. Risk of Complications, Morbidity, and/or Mortality (Risk): - High Risk: The patient's management involves IV fluids with additives (potassium), prescription drug management for nausea, and monitoring for complications of severe dehydration and electrolyte imbalance. The underlying cause is a severe reaction to immunotherapy, which carries significant morbidity. The decision to admit for escalation of care also places this encounter in the high-risk category. Medications & Allergies Home Medications: Home Medication List ALPRAZolam [Alprazolam] 0.5 mg PO TID PRN 07/28/25 [History Confirmed 08/01/25] Ibuprofen 200 mg [Motrin 200 mg] 200 mg PO Q6H PRN PRN 07/28/25 [History Confirmed 08/01/25] Levothyroxine Sodium 50 Mcg [Synthroid 50 Mcg] 50 mcg PO DAILY 07/28/25 [History Confirmed 08/01/25] Potassium Chloride 20 meq PO DAILY 07/28/25 [History Confirmed 08/01/25] ondansetron HCL [Ondansetron HCl] 8 mg PO Q8H PRN PRN 07/28/25 [History Confirmed 08/01/25] Lactobacillus Rhamnosus GG [Culturelle] 1 cap PO DAILY PRN PRN 08/01/25 [History Confirmed 08/01/25] Loperamide HCl [Imodium A-D] 2 mg PO DAILY PRN PRN 08/01/25 [History Confirmed 08/01/25] Allergies/Adverse Reactions: Allergies Allergy/AdvReac Type Severity Reaction Status Date / Time acetaminophen Allergy Intermediate Hives Verified 08/01/25 17:10 [From Darvocet-N] propoxyphene Allergy Intermediate Hives Verified 08/01/25 17:10 [From Darvocet-N] - Past Medical History Past Medical History: Yes Neurological History: Migraines ENT History: No Pertinent History Cardiac History: No Pertinent History Respiratory History: No Pertinent History Endocrine Medical History: No Pertinent History, Hyperthyroidism Musculoskelatal History: No Pertinent History GI Medical History: GERD, Hemorrhoids History: Other Pyscho-Social History: No Pertinent History, Anxiety, Panic Disorder Reproductive Disorders: No Pertinent History Comment: Melonamo with mets - Female History Hx Last Menstrual Period: current Are you now?: No - Past Surgical History Past Surgical History: Yes Other Surgical History: lymph nodes removed near groin, Removal of skin cancer - Social History Smoking Status: Never smoker Exposure to second hand smoke: No Alcohol: None Drug Use: none - Social Determinants of Health Will the patient participate in the screening: Yes Do you worry about a steady place to live?: No Do you have any problems with any of the following?: No known problems In the past 12 months,have you had to go without utilities?: No Have you or anyone in your house had to go without enough: No Transportation Issues: No Has anyone in your support network made you feel unsafe?: No Does the patient want assistance with any of the above?: No - Physical Exam Vital Signs: Vital Signs - 24 hr Temp Pulse Resp BP BP Pulse Ox 08/01/25 22:07 97 F 89 18 114/66 99 08/01/25 21:30 88 13 104/65 99 08/01/25 21:00 82 14 113/62 99 08/01/25 20:30 82 13 104/66 99 08/01/25 20:00 85 16 116/60 100 08/01/25 19:30 85 14 105/64 100 08/01/25 19:00 81 12 110/64 100 08/01/25 18:30 84 14 106/61 100 08/01/25 18:00 86 16 107/84 107/84 96 08/01/25 17:30 94 H 16 118/84 96 08/01/25 17:04 92 H 20 127/88 95 08/01/25 17:02 97.4 F 96 H 18 127/88 97 Wound Assessment: Skin/Wound Assessment Wound/Incision Assessment Start: 08/01/25 22:22 Text: Status: Active Freq: Q6H Protocol: Document 08/01/25 22:22 (Rec: 08/01/25 23:48 [id number]) Wound/Incision Assessment Right Lower Medial Ankle Wound Assessment Admission Wound Type Abrasion Dressing Status Dry & Intact Drainage Amount None General Appearance Well Approximated,Open to air, Clean/Dry Surrounding Tissue [place] Results - Labs Lab/Micro Results: Lab Results-Last 24 Hours 08/01/25 08/01/25 08/01/25 Range/Units 17:35 17:35 17:35 WBC 22.6 H (3.98-10.04) x10^3/uL RBC 5.85 H (3.93-5.22) x10^6/uL Hgb 17.2 H (11.2-15.7) g/dL Hct 49.5 H (34.1-44.9) % MCV 84.6 (79.4-94.8) fL MCH 29.4 (25.6-32.2) pg MCHC 34.7 (32.2-35.5) g/dL RDW 15.4 H (11.7-14.4) % Plt Count 428 H (182-369) x10^3/uL MPV 9.8 (9.4-12.3) fL Segmented Neutrophils 67 (34.0-71.1) % Band Neutrophils 15 H (0.0-2.0) % Lymphocytes (Manual) 13 L (19.3-51.7) % Monocytes (Manual) 3 L (4.7-12.5) % Eosinophils (Manual) 2 (0.7-5.8) % Platelet Estimate NORMAL (NORMAL) RBC Morphology NORMAL Sodium 134 L (135-145) mmol/L Potassium 2.3 L* (3.5-5.1) mmol/L Chloride 101 (98-107) mmol/L Carbon Dioxide 19 L (22-30) mmol/L Anion Gap 17.2 H (5-15) MEQ/L BUN 12 (7-17) mg/dL Creatinine 1.15 H (0.52-1.04) mg/dL Estimated GFR 61.8 ML/MIN Glucose 139 H (74-106) mg/dL Calcium 10.1 (8.4-10.2) mg/dL Magnesium 2.1 (1.6-2.3) mg/dL Total Bilirubin 0.50 (0.2-1.3) mg/dL AST 30 (14-36) U/L ALT 30 (0-35) U/L Alkaline Phosphatase 125 (38-126) U/L Serum Total Protein 7.4 (6.3-8.2) g/dL Albumin 4.0 (3.5-5.0) g/dL Lipase 97 (23-300) U/L Free T4 (0.78-2.19) ng/dL TSH 3rd Generation 63.092 H (0.470-4.680) mIU/L Urine Color (Yellow) Urine Appearance (Clear) Urine pH (4.6-8.0) Ur Specific [place] (1.005-1.030) Urine Protein (Negative) Urine Glucose (UA) (Negative) mg/dL Urine Ketones (Negative) Urine Blood (Negative) Urine Nitrite (Negative) Urine Bilirubin (Negative) Urine Urobilinogen (0.2) mg/dL Ur Leukocyte Esterase (Negative) U Hyaline Cast (Auto) (0-2) /LPF Urine Microscopic RBC (0-5) /HPF Urine Microscopic WBC (0-5) /HPF Ur Epithelial Cells (None Seen) /HPF Urine Bacteria (None Seen) /HPF Urine Culture Reflexed (NO) 08/01/25 08/01/25 08/01/25 Range/Units 17:35 18:52 21:58 WBC (3.98-10.04) x10^3/uL RBC (3.93-5.22) x10^6/uL Hgb (11.2-15.7) g/dL Hct (34.1-44.9) % MCV (79.4-94.8) fL MCH (25.6-32.2) pg MCHC (32.2-35.5) g/dL RDW (11.7-14.4) % Plt Count (182-369) x10^3/uL MPV (9.4-12.3) fL Segmented Neutrophils (34.0-71.1) % Band Neutrophils (0.0-2.0) % Lymphocytes (Manual) (19.3-51.7) % Monocytes (Manual) (4.7-12.5) % Eosinophils (Manual) (0.7-5.8) % Platelet Estimate (NORMAL) RBC Morphology Sodium 134 L (135-145) mmol/L Potassium 2.6 L* (3.5-5.1) mmol/L Chloride 107 (98-107) mmol/L Carbon Dioxide 19 L (22-30) mmol/L Anion Gap 10.6 (5-15) MEQ/L BUN 11 (7-17) mg/dL Creatinine 0.98 (0.52-1.04) mg/dL Estimated GFR 74.8 ML/MIN Glucose 108 H (74-106) mg/dL Calcium 8.4 D (8.4-10.2) mg/dL Magnesium (1.6-2.3) mg/dL Total Bilirubin 0.30 (0.2-1.3) mg/dL AST 24 (14-36) U/L ALT 24 (0-35) U/L Alkaline Phosphatase 90 (38-126) U/L Serum Total Protein 5.6 L (6.3-8.2) g/dL Albumin 2.9 L (3.5-5.0) g/dL Lipase (23-300) U/L Free T4 0.23 L (0.78-2.19) ng/dL TSH 3rd Generation (0.470-4.680) mIU/L Urine Color Yellow (Yellow) Urine Appearance Cloudy A (Clear) Urine pH 6.0 (4.6-8.0) Ur Specific [place] 1.020 (1.005-1.030) Urine Protein 30 (Negative) Urine Glucose (UA) Negative (Negative) mg/dL Urine Ketones Trace A (Negative) Urine Blood Large A (Negative) Urine Nitrite Negative (Negative) Urine Bilirubin Negative (Negative) Urine Urobilinogen 0.2 (0.2) mg/dL Ur Leukocyte Esterase Negative (Negative) U Hyaline Cast (Auto) 3-5 A (0-2) /LPF Urine Microscopic RBC >100 A (0-5) /HPF Urine Microscopic WBC 6-10 A (0-5) /HPF Ur Epithelial Cells Moderate A (None Seen) /HPF Urine Bacteria Few A (None Seen) /HPF Urine Culture Reflexed YES (NO) 08/01/25 Range/Units 22:37 WBC (3.98-10.04) x10^3/uL RBC (3.93-5.22) x10^6/uL Hgb (11.2-15.7) g/dL Hct (34.1-44.9) % MCV (79.4-94.8) fL MCH (25.6-32.2) pg MCHC (32.2-35.5) g/dL RDW (11.7-14.4) % Plt Count (182-369) x10^3/uL MPV (9.4-12.3) fL Segmented Neutrophils (34.0-71.1) % Band Neutrophils (0.0-2.0) % Lymphocytes (Manual) (19.3-51.7) % Monocytes (Manual) (4.7-12.5) % Eosinophils (Manual) (0.7-5.8) % Platelet Estimate (NORMAL) RBC Morphology Sodium (135-145) mmol/L Potassium (3.5-5.1) mmol/L Chloride (98-107) mmol/L Carbon Dioxide (22-30) mmol/L Anion Gap (5-15) MEQ/L BUN (7-17) mg/dL Creatinine (0.52-1.04) mg/dL Estimated GFR ML/MIN Glucose (74-106) mg/dL Calcium (8.4-10.2) mg/dL Magnesium 1.9 (1.6-2.3) mg/dL Total Bilirubin (0.2-1.3) mg/dL AST (14-36) U/L ALT (0-35) U/L Alkaline Phosphatase (38-126) U/L Serum Total Protein (6.3-8.2) g/dL Albumin (3.5-5.0) g/dL Lipase (23-300) U/L Free T4 (0.78-2.19) ng/dL TSH 3rd Generation (0.470-4.680) mIU/L Urine Color (Yellow) Urine Appearance (Clear) Urine pH (4.6-8.0) Ur Specific [place] (1.005-1.030) Urine Protein (Negative) Urine Glucose (UA) (Negative) mg/dL Urine Ketones (Negative) Urine Blood (Negative) Urine Nitrite (Negative) Urine Bilirubin (Negative) Urine Urobilinogen (0.2) mg/dL Ur Leukocyte Esterase (Negative) U Hyaline Cast (Auto) (0-2) /LPF Urine Microscopic RBC (0-5) /HPF Urine Microscopic WBC (0-5) /HPF Ur Epithelial Cells (None Seen) /HPF Urine Bacteria (None Seen) /HPF Urine Culture Reflexed (NO) Telemedicine Encounter - Telemedicine Encounter Telemedicine Encounter: "The entirety of this encounter was performed via Telemedicine" This visit was performed using real-time audio and video connection between my location and thepatients locationwith the assistance of a surrogateat the patients location. Written or verbal consent was obtained from the patient/guardian to perform this visit usingsynchronoustelemedicine technology. Any patient questions regarding the telemedicine interaction were answered.
[2025-08-02] MEDS: Zofran 4 MG/2 ML VIAL IV PRN (01:13)
[2025-08-02] MEDS: xanAX 0.5 MG PO PRN (01:26)
--- NOTE | 2025-08-02 05:18 | PCM.NOTE ---
Date and Time: 08/02/25 0511 Subjective Assessment: Ms. Jade is a 40 year old female with a pmhx of stage III melanoma currently on combination immunotherapy with nivolumab (Opdivo) and ipilimumab (Yervoy), who presented to ED 08/01/25 with severe vomiting and profuse watery diarrhea following the third treatment cycle on July 25, 2025. They had been seen in the ED earlier in the week, where IV fluids and potassium were given for dehydration and electrolyte imbalance before being discharged home. Symptoms worsened, with continued watery diarrhea, fatigue, and poor oral intake, prompting readmission. On arrival, labs reflected the extent of dehydration and GI losses sodium 134, potassium 2.3, and CO2 19, showing metabolic acidosis from volume depletion and diarrhea. Repeat potassium after IV replacement dave only slightly to 2.6, confirming ongoing losses. Hemoglobin 17.2 was elevated, consistent with hemoconcentration, and white blood cell count 22.6 likely represented a stress response rather than infection, as the patient remained afebrile without localizing symptoms. Endorses feeling profoundly weak and exhausted but deny fevers, chills, or true abdominal painonly mild tenderness from repeated vomiting earlier in the week. Since admission, no further emesis has occurred. She has tolerated small sips of water but remains cautious about eating due to fear of recurrence. The first round of immunotherapy caused mild GI upset, the second went smoothly, and this third treatment triggered severe, unrelenting symptoms. Thyroid function drawn with admission labs showed a TSH of 63.092, markedly elevated after several missed doses of levothyroxine due to vomiting, contributing to their fatigue and sluggishness. 08/02: The patient was evaluated at bedside this morning. She continues to experience nausea but denies any vomiting since admission. Diarrhea remains ongoing, and she reports that her developed similar gastrointestinal symptoms around the same time, raising the possibility of a viral gastroenteritis versus an immune-mediated process related to her recent Opdivo/Yervoy combination therapy. She remains afebrile and hemodynamically stable. Repeat laboratory evaluation reveals potassium of 2.2, for which aggressive replacement is ongoing. Magnesium will also be replenished, and a bicarbonate infusion has been initiated for metabolic acidosis with a CO2 level of 17. White blood cell count has improved, now 15.4 down from 22.6 on admission. The patient is receiving IV fluids and electrolyte monitoring every 68 hours. Stool studies are pending to evaluate for infectious etiology, and close observation continues for potential immune- related colitis. - Review of Systems Constitutional: No Symptoms Eyes: No Symptoms Ears, Nose, & Throat: No Symptoms Respiratory: No Symptoms Cardiac: No Symptoms Abdominal/Gastrointestinal: Abdominal Pain, Nausea, Vomiting, Diarrhea Genitourinary Symptoms: No Symptoms Musculoskeletal: No Symptoms Skin: No Symptoms Neurological: No Symptoms Psychological: No Symptoms Endocrine: No Symptoms Hematologic/Lymphatic: No Symptoms Immunological/Allergic: No Symptoms Objective Exam General Appearance: no apparent distress Neurologic Exam: alert, oriented x 3, cooperative Skin Exam: normal color Wound Assessment: Skin/Wound Assessment Wound/Incision Assessment Start: 08/01/25 22:22 Text: Status: Active Freq: Q6H Protocol: Document 08/01/25 22:22 (Rec: 08/01/25 23:48 [id number]) Wound/Incision Assessment Right Lower Medial Ankle Wound Assessment Admission Wound Type Abrasion Dressing Status Dry & Intact Drainage Amount None General Appearance Well Approximated,Open to air, Clean/Dry Surrounding Tissue Quail Eye Exam: PERRL Ears, Nose, Throat Exam: normal ENT inspection Neck Exam: normal inspection Respiratory Exam: normal breath sounds, lungs clear Cardiovascular Exam: regular rate/rhythm, normal heart sounds Gastrointestinal/Abdomen Exam: tenderness, other (hyperactive BS x 4) Extremity Exam: normal inspection Back Exam: normal inspection Objective Data Vital Signs: Vital Signs - 24 hr Temp Pulse Resp BP BP Pulse Ox 08/02/25 04:00 96.8 F 83 16 110/52 97 08/01/25 22:07 97 F 89 18 114/66 99 08/01/25 21:30 88 13 104/65 99 08/01/25 21:00 82 14 113/62 99 08/01/25 20:30 82 13 104/66 99 08/01/25 20:00 85 16 116/60 100 08/01/25 19:30 85 14 105/64 100 08/01/25 19:00 81 12 110/64 100 08/01/25 18:30 84 14 106/61 100 08/01/25 18:00 86 16 107/84 107/84 96 08/01/25 17:30 94 H 16 118/84 96 08/01/25 17:04 92 H 20 127/88 95 08/01/25 17:02 97.4 F 96 H 18 127/88 97 Pain Assessment - Last Documented Pain Intensity 5 Pain Scale Used 0-10 Pain Scale Intake and Output: Intake & Output 07/30/25 07/31/25 08/01/25 08/02/25 11:59 11:59 11:59 11:59 Intake Total 603 Balance 603 Weight 77.2 kg Lab Results: Lab Results-Last 24 Hours 08/01/25 08/01/25 08/01/25 Range/Units 17:35 17:35 17:35 WBC 22.6 H (3.98-10.04) x10^3/uL RBC 5.85 H (3.93-5.22) x10^6/uL Hgb 17.2 H (11.2-15.7) g/dL Hct 49.5 H (34.1-44.9) % MCV 84.6 (79.4-94.8) fL MCH 29.4 (25.6-32.2) pg MCHC 34.7 (32.2-35.5) g/dL RDW 15.4 H (11.7-14.4) % Plt Count 428 H (182-369) x10^3/uL MPV 9.8 (9.4-12.3) fL Segmented Neutrophils 67 (34.0-71.1) % Band Neutrophils 15 H (0.0-2.0) % Lymphocytes (Manual) 13 L (19.3-51.7) % Monocytes (Manual) 3 L (4.7-12.5) % Eosinophils (Manual) 2 (0.7-5.8) % Platelet Estimate NORMAL (NORMAL) RBC Morphology NORMAL Sodium 134 L (135-145) mmol/L Potassium 2.3 L* (3.5-5.1) mmol/L Chloride 101 (98-107) mmol/L Carbon Dioxide 19 L (22-30) mmol/L Anion Gap 17.2 H (5-15) MEQ/L BUN 12 (7-17) mg/dL Creatinine 1.15 H (0.52-1.04) mg/dL Estimated GFR 61.8 ML/MIN Glucose 139 H (74-106) mg/dL Calcium 10.1 (8.4-10.2) mg/dL Magnesium 2.1 (1.6-2.3) mg/dL Total Bilirubin 0.50 (0.2-1.3) mg/dL AST 30 (14-36) U/L ALT 30 (0-35) U/L Alkaline Phosphatase 125 (38-126) U/L Serum Total Protein 7.4 (6.3-8.2) g/dL Albumin 4.0 (3.5-5.0) g/dL Lipase 97 (23-300) U/L Free T4 (0.78-2.19) ng/dL TSH 3rd Generation 63.092 H (0.470-4.680) mIU/L Urine Color (Yellow) Urine Appearance (Clear) Urine pH (4.6-8.0) Ur Specific Hadley (1.005-1.030) Urine Protein (Negative) Urine Glucose (UA) (Negative) mg/dL Urine Ketones (Negative) Urine Blood (Negative) Urine Nitrite (Negative) Urine Bilirubin (Negative) Urine Urobilinogen (0.2) mg/dL Ur Leukocyte Esterase (Negative) U Hyaline Cast (Auto) (0-2) /LPF Urine Microscopic RBC (0-5) /HPF Urine Microscopic WBC (0-5) /HPF Ur Epithelial Cells (None Seen) /HPF Urine Bacteria (None Seen) /HPF Urine Culture Reflexed (NO) 08/01/25 08/01/25 08/01/25 Range/Units 17:35 18:52 21:58 WBC (3.98-10.04) x10^3/uL RBC (3.93-5.22) x10^6/uL Hgb (11.2-15.7) g/dL Hct (34.1-44.9) % MCV (79.4-94.8) fL MCH (25.6-32.2) pg MCHC (32.2-35.5) g/dL RDW (11.7-14.4) % Plt Count (182-369) x10^3/uL MPV (9.4-12.3) fL Segmented Neutrophils (34.0-71.1) % Band Neutrophils (0.0-2.0) % Lymphocytes (Manual) (19.3-51.7) % Monocytes (Manual) (4.7-12.5) % Eosinophils (Manual) (0.7-5.8) % Platelet Estimate (NORMAL) RBC Morphology Sodium 134 L (135-145) mmol/L Potassium 2.6 L* (3.5-5.1) mmol/L Chloride 107 (98-107) mmol/L Carbon Dioxide 19 L (22-30) mmol/L Anion Gap 10.6 (5-15) MEQ/L BUN 11 (7-17) mg/dL Creatinine 0.98 (0.52-1.04) mg/dL Estimated GFR 74.8 ML/MIN Glucose 108 H (74-106) mg/dL Calcium 8.4 D (8.4-10.2) mg/dL Magnesium (1.6-2.3) mg/dL Total Bilirubin 0.30 (0.2-1.3) mg/dL AST 24 (14-36) U/L ALT 24 (0-35) U/L Alkaline Phosphatase 90 (38-126) U/L Serum Total Protein 5.6 L (6.3-8.2) g/dL Albumin 2.9 L (3.5-5.0) g/dL Lipase (23-300) U/L Free T4 0.23 L (0.78-2.19) ng/dL TSH 3rd Generation (0.470-4.680) mIU/L Urine Color Yellow (Yellow) Urine Appearance Cloudy A (Clear) Urine pH 6.0 (4.6-8.0) Ur Specific Hadley 1.020 (1.005-1.030) Urine Protein 30 (Negative) Urine Glucose (UA) Negative (Negative) mg/dL Urine Ketones Trace A (Negative) Urine Blood Large A (Negative) Urine Nitrite Negative (Negative) Urine Bilirubin Negative (Negative) Urine Urobilinogen 0.2 (0.2) mg/dL Ur Leukocyte Esterase Negative (Negative) U Hyaline Cast (Auto) 3-5 A (0-2) /LPF Urine Microscopic RBC >100 A (0-5) /HPF Urine Microscopic WBC 6-10 A (0-5) /HPF Ur Epithelial Cells Moderate A (None Seen) /HPF Urine Bacteria Few A (None Seen) /HPF Urine Culture Reflexed YES (NO) 08/01/25 Range/Units 22:37 WBC (3.98-10.04) x10^3/uL RBC (3.93-5.22) x10^6/uL Hgb (11.2-15.7) g/dL Hct (34.1-44.9) % MCV (79.4-94.8) fL MCH (25.6-32.2) pg MCHC (32.2-35.5) g/dL RDW (11.7-14.4) % Plt Count (182-369) x10^3/uL MPV (9.4-12.3) fL Segmented Neutrophils (34.0-71.1) % Band Neutrophils (0.0-2.0) % Lymphocytes (Manual) (19.3-51.7) % Monocytes (Manual) (4.7-12.5) % Eosinophils (Manual) (0.7-5.8) % Platelet Estimate (NORMAL) RBC Morphology Sodium (135-145) mmol/L Potassium (3.5-5.1) mmol/L Chloride (98-107) mmol/L Carbon Dioxide (22-30) mmol/L Anion Gap (5-15) MEQ/L BUN (7-17) mg/dL Creatinine (0.52-1.04) mg/dL Estimated GFR ML/MIN Glucose (74-106) mg/dL Calcium (8.4-10.2) mg/dL Magnesium 1.9 (1.6-2.3) mg/dL Total Bilirubin (0.2-1.3) mg/dL AST (14-36) U/L ALT (0-35) U/L Alkaline Phosphatase (38-126) U/L Serum Total Protein (6.3-8.2) g/dL Albumin (3.5-5.0) g/dL Lipase (23-300) U/L Free T4 (0.78-2.19) ng/dL TSH 3rd Generation (0.470-4.680) mIU/L Urine Color (Yellow) Urine Appearance (Clear) Urine pH (4.6-8.0) Ur Specific [place]ley (1.005-1.030) Urine Protein (Negative) Urine Glucose (UA) (Negative) mg/dL Urine Ketones (Negative) Urine Blood (Negative) Urine Nitrite (Negative) Urine Bilirubin (Negative) Urine Urobilinogen (0.2) mg/dL Ur Leukocyte Esterase (Negative) U Hyaline Cast (Auto) (0-2) /LPF Urine Microscopic RBC (0-5) /HPF Urine Microscopic WBC (0-5) /HPF Ur Epithelial Cells (None Seen) /HPF Urine Bacteria (None Seen) /HPF Urine Culture Reflexed (NO) Medications: Medications Generic Name Dose Route Start Last Admin Trade Name Freq PRN Reason Stop Dose Admin Alprazolam 0.5 mg 08/02/25 01:12 08/02/25 01:26 Alprazolam 0.5 Mg Tablet PO 09/01/25 01:11 0.5 mg TID PRN Administration ANXIETY Sodium Chloride 1,000 mls @ 100 mls/hr 08/01/25 21:47 08/01/25 22:11 Sodium Chloride 0.9% 1000 Ml IV 08/31/25 21:46 100 mls/hr .Q10H LEANNE Administration Potassium Chloride 20 meq in 100 mls @ 50 mls/hr 08/01/25 21:47 08/01/25 22: 11 Potassium Chloride 20 Meq In Water 100ml IV 08/01/25 23:46 50 mls/hr STAT ONE Administration Levothyroxine Sodium 50 mcg 08/02/25 10:00 Levothyroxine Sodium 50 Mcg Tablet PO 09/01/25 09:59 DAILY LEANNE Loperamide HCl 2 mg 08/02/25 01:12 Loperamide Hcl 2 Mg Capsule PO 09/01/25 01:11 DAILY PRN PRN DIARRHEA Non-Formulary Medication 1 cap 08/02/25 01:12 Lactobacillus Rhamnosus Gg [Culturelle] PO DAILY PRN PRN DIARRHEA Non-Formulary Medication 200 mg 08/02/25 01:12 Ibuprofen 200 Mg [Motrin 200 Mg] PO Q6H PRN PRN PAIN Non-Formulary Medication 8 mg 08/02/25 01:12 Ondansetron Hcl [Ondansetron Hcl] PO Q8H PRN PRN NAUSEA Non-Formulary Medication 20 meq 08/02/25 10:00 Potassium Chloride [Potassium Chloride] PO 09/01/25 09:59 DAILY LEANNE Ondansetron HCl 4 mg 08/01/25 21:47 08/02/25 01:13 Ondansetron Hcl 4 Mg/2 Ml Vial IV 08/31/25 21:46 4 mg Q6H PRN PRN Administration NAUSEA/VOMITING Discontinued Medications Generic Name Dose Route Start Last Admin Trade Name Candy PRN Reason Stop Dose Admin Sodium Chloride 1,000 mls @ 999 mls/hr 08/01/25 17:29 08/01/25 18:36 Sodium Chloride 0.9% 1000 Ml IV 08/01/25 18:29 Infused .Q1H1M STA Infusion Sodium Chloride Confirm 08/01/25 17:34 Sodium Chloride 0.9% 1000 Ml Administered 08/01/25 17:35 Dose 1,000 mls @ ud .ROUTE .STK-MED ONE Sodium Chloride 1,000 mls @ 999 mls/hr 08/01/25 18:27 08/01/25 19:50 Sodium Chloride 0.9% 1000 Ml IV 08/01/25 19:27 Infused .Q1H1M STA Infusion Sodium Chloride Confirm 08/01/25 18:42 Sodium Chloride 0.9% 1000 Ml Administered 08/01/25 18:43 Dose 1,000 mls @ ud .ROUTE .STK-MED ONE Potassium Chloride 20 meq in 100 mls @ 50 mls/hr 08/01/25 18:46 08/01/25 20:56 Potassium Chloride 20 Meq In Water 100ml IV 08/01/25 20:45 Infused STAT ONE Infusion Potassium Chloride Confirm 08/01/25 18:54 Potassium Chloride 20 Meq In Water 100ml Administered 08/01/25 18:55 Dose 100 mls @ ud IV .STK-MED ONE Lactated Ringer's 1,000 mls @ 125 mls/hr 08/01/25 19:43 08/01/25 20:46 Lactated Ringers IV 08/02/25 03:42 300 mls/hr .Q8H STA Infusion Lactated Ringer's Confirm 08/01/25 19:44 Lactated Ringers Administered 08/01/25 19:45 Dose 1,000 mls @ ud IV .STK-MED ONE Potassium Chloride Confirm 08/01/25 21:05 Potassium Chloride 20 Meq In Water 100ml Administered 08/01/25 21:06 Dose 100 mls @ ud IV .STK-MED ONE Morphine Sulfate 4 mg 08/01/25 17:29 08/01/25 17:37 Morphine Sulfate 4 Mg/Ml Injection IV 08/01/25 17:30 4 mg STAT ONE Administration Morphine Sulfate Confirm 08/01/25 17:34 Morphine Sulfate 4 Mg/Ml Injection Administered 08/01/25 17:35 Dose 4 mg .ROUTE .STK-MED ONE Ondansetron HCl 4 mg 08/01/25 17:29 08/01/25 17:37 Ondansetron Hcl 4 Mg/2 Ml Vial IV 08/01/25 17:30 4 mg STAT ONE Administration Ondansetron HCl Confirm 08/01/25 17:33 Ondansetron Hcl 4 Mg/2 Ml Vial Administered 08/01/25 17:34 Dose 4 mg .ROUTE .STK-MED ONE Ondansetron HCl 4 mg 08/01/25 21:20 08/01/25 21:25 Ondansetron Hcl 4 Mg/2 Ml Vial IV 08/01/25 21:21 4 mg STAT ONE Administration Ondansetron HCl Confirm 08/01/25 21:24 Ondansetron Hcl 4 Mg/2 Ml Vial Administered 08/01/25 21:25 Dose 4 mg .ROUTE .STK-MED ONE Pantoprazole Sodium 40 mg 08/01/25 17:29 08/01/25 17:36 Pantoprazole 40 Mg Vial IV 08/01/25 17:30 40 mg STAT ONE Administration Pantoprazole Sodium Confirm 08/01/25 17:33 Pantoprazole 40 Mg Vial Administered 08/01/25 17:34 Dose 40 mg IV .STK-MED ONE Assessment/Plan (1) Vomiting and diarrhea Current Visit: Yes Status: Acute Assessment & Plan: -Caused by recent Opdivo/Yervoy treatment, presenting with persistent watery diarrhea, mild abdominal tenderness, and dehydration. -Continue IV fluid hydration to correct volume depletion and maintain perfusion. -Strictly monitor intake and output and daily weights. -Continue ondansetron and prochlorperazine as needed for nausea control. -Start clear liquid diet, advance as tolerated. -If diarrhea persists >48 hours or worsens, consider IV methylprednisolone 12 mg/kg/day per ASCO/NCCN immunotherapy toxicity guidelines (2023). -Consider GI consult -Stool studies -Hold further immunotherapy until cleared by oncology. Code(s): R11.10 - VOMITING, UNSPECIFIED; R19.7 - DIARRHEA, UNSPECIFIED (2) Leukocytosis (leucocytosis) Current Visit: Yes Status: Acute Assessment & Plan: -WBC 22.6, likely reactive due to dehydration or immune-related inflammation.- downtrended to 15.4 -Continue to monitor CBC daily. -No current evidence of infectionno fever, chills, or localizing symptoms. -Defer antibiotics unless clinical picture changes. Code(s): D72.829 - ELEVATED WHITE BLOOD CELL COUNT, UNSPECIFIED (3) Hypokalemia Current Visit: Yes Status: Acute Assessment & Plan: Admission K+ 2.3, increased to 2.6 after initial IV replacement -continue potassium protocol -Reviewed potassium and at 2.2 after receiving 40meq of potassium - will continue to replenish -Mg at 1.8 will replenish with 1g Mag sulfate -Continue IV potassium chloride repletion, transitioning to oral as tolerated. -Target serum potassium > 4 mmol/L. -Recheck potassium per protocol Code(s): E87.6 - HYPOKALEMIA (4) Hypothyroidism Current Visit: Yes Status: Acute Assessment & Plan: -TSH 63.092, significantly elevated from missed doses during vomiting episode. -Resume levothyroxine 50 mcg PO daily when oral intake tolerated. -If unable to tolerate PO for >4872 hours, switch to IV levothyroxine at 5075% of oral dose. -Recheck TSH and free T4 in 46 weeks to assess response. -Expect gradual improvement in fatigue and lethargy with resumed therapy. VTE: Lovenox PPI: protonix Dispo: 1-2 days Plan of care time spent > 35 mins Code(s): E03.9 - HYPOTHYROIDISM, UNSPECIFIED
[2025-08-02 06:38] LABS: Hematocrit 38.4 % (34.1-44.9); Hemoglobin 13.0 g/dL (11.2-15.7); Mean Corpuscular Hemoglobin 29.1 pg (25.6-32.2); Mean Corpuscular Hgb Concent. 33.9 g/dL (32.2-35.5); Platelet Count 314 x10^3/uL (182-369); Red Blood Count 4.47 x10^6/uL (3.93-5.22); White Blood Count 15.4 x10^3/uL (3.98-10.04)
[2025-08-02 08:21] LABS: Calcium 8.2 mg/dL (8.4-10.2); Carbon Dioxide 17.0 mmol/L (22-30); Creatinine 1 0.87 mg/dL (0.52-1.04); EST GLOMERULAR FILTRATION RATE 86.3 ML/MIN; Glucose 88.0 mg/dL (74-106); NT PRO BNPII 99.5 pg/mL (<300)
[2025-08-02 08:23] LABS: Potassium 2.2 mmol/L (3.5-5.1)
[2025-08-02] MEDS ORDERED: xanAX 0.5 MG PO PRN (08:35)
[2025-08-02] MEDS ORDERED: Magnesium Sulfate 1 GM/2 ML VIAL IV ONE (08:37)
[2025-08-02] MEDS ORDERED: ZOFRAN ODT 4 MG PO PRN (08:39)
[2025-08-02] MEDS: SYNTHROID 50 MCG PO SCH (08:47)
[2025-08-02 09:09] LABS: Total Cells Counted 100; Toxic Granulation 2+
[2025-08-02 09:10] LABS: BAND 24 % (0.0-2.0)
[2025-08-02] MEDS: Magnesium 1 Gm / 100 Ml D5W*** 100 ML IV ONE ×2 (09:18→23:52)
[2025-08-02] MEDS: Acidophilus TABLET PO PRN (09:18)
[2025-08-02] MEDS: POTASSIUM CHLORIDE 20 mEq IN WATER 100ML 100 ML IV SCH ×2 (09:19→18:24)
[2025-08-02] MEDS ORDERED: NON-FORMULARY ITEM (Potassium Chloride [Potassium Chloride] 20 MEQ Tablet.Er) PO SCH (10:00)
[2025-08-02] MEDS ORDERED: Ativan 2 MG/1 ML VIAL IV PRN (10:25)
[2025-08-02 10:58] LABS: 027 TOX PROD PRESUMPTIVE NEGATIVE (NEGATIVE); TOXIGENIC C. DIFF ORG NEGATIVE (NEGATIVE)
[2025-08-02] MEDS: ATIVAN 2 MG/ML MDV FOR SINGLE DOSES IV PRN (11:46)
[2025-08-02] MEDS: Reglan 10 MG/2 ML IV ONE (12:08)
[2025-08-02 12:48] LABS: Calcium 8.4 mg/dL (8.4-10.2); Carbon Dioxide 19.0 mmol/L (22-30); Creatinine 1 0.99 mg/dL (0.52-1.04); EST GLOMERULAR FILTRATION RATE 73.9 ML/MIN; Glucose 115.0 mg/dL (74-106); SGOT/AST 21.0 U/L (14-36); SGPT/ALT 22.0 U/L (0-35); Total Protein 5.8 g/dL (6.3-8.2)
[2025-08-02 12:53] LABS: Potassium 2.3 mmol/L (3.5-5.1)
[2025-08-02] MEDS: MARY'S MAGIC MOUTHWASH PO SCH (15:58)
[2025-08-02] MEDS: Klor Con PO SCH (15:58)
[2025-08-02] MEDS: PROTONIX 40 MG IV IV SCH (15:59)
[2025-08-02] MEDS: SODIUM CHLORIDE 0.9% W/ 40 mEq KCL 1000ML 1,000 ML IV SCH (15:59)
[2025-08-02 17:45] LABS: Calcium 8.4 mg/dL (8.4-10.2); Creatinine 1 0.96 mg/dL (0.52-1.04); EST GLOMERULAR FILTRATION RATE 76.7 ML/MIN; Glucose 104.0 mg/dL (74-106)
[2025-08-02 17:48] LABS: Potassium 2.3 mmol/L (3.5-5.1)
[2025-08-02 17:52] LABS: Carbon Dioxide 16.0 mmol/L (22-30)
[2025-08-02] MEDS ORDERED: POTASSIUM CHLORIDE 20 mEq IN WATER 100ML 100 ML IV ONE ×2 (18:14→21:14)
[2025-08-02] MEDS ORDERED: Sterile H2O 10 ml IJ ONE (18:16)
--- NOTE | 2025-08-02 18:17 | XRAY ---
CLINICAL HISTORY: abdominal pain diarrhea vomiting COMPARISON: No prior studies are available for comparison. TECHNIQUE: CT of the abdomen and pelvis was performed with contrast, using the following protocol: Axial images were obtained, and coronal and sagittal images were reconstructed. One of the following dose reduction techniques was utilized for this exam: automated exposure control; adjustment of the mA and/or kV according to patient size; and use of iterative reconstruction. FINDINGS: Abdomen: Liver: The liver is normal in size, shape, and density. Few hypodense, nonenhancing areas are seen in the liver, with the largest in segment 8 measuring 9.4 mm. No focal lesions or masses are identified. The hepatic vasculature and biliary ducts are unremarkable. Gallbladder and Biliary System: The gallbladder is normal in size and shape. No wall thickening, pericholecystic fluid, or gallstones are identified. The common bile duct is normal in caliber without dilation. Pancreas: The pancreatic head, body, and tail are visualized and appear normal in size and density. No pancreatic masses or calcifications are noted. The pancreatic duct is not dilated. Spleen: The spleen is normal in size, shape, and density. No splenic lesions or masses are identified. Appendix: The appendix is normal in size, without periappendiceal fat stranding and without an appendicolith. There is no evidence of appendiceal abscess or perforation. Kidneys and Adrenal Glands: Both kidneys are normal in size, shape, and position. Cortical thickness is within normal limits. No renal calculi or hydronephrosis are present. A small simple cortical cyst is noted in the left kidney, measuring 1.3 cm. The adrenal glands are unremarkable, with no evidence of masses or hyperplasia. Pelvis: Urinary Bladder: The urinary bladder is normal in contour and wall thickness. No intraluminal lesions are identified. Uterus: The uterus is normal in size and contour. There are no masses or abnormal thickening. Ovaries: The ovaries are not well visualized, but no gross abnormalities are noted. Vagina: The vagina is normal in contour and wall thickness. Cervix: There is no evidence of mass or abnormal thickening. Peritoneal and Retroperitoneal Structures: No free fluid or abnormal fluid collections are identified within the abdomen or pelvis. No lymphadenopathy is noted. Bowel: Two jejunal segments of intussusception are noted, with no evidence of proximal dilatation or obstruction. (images 50-53 se 2 and images 54-55 se 2) Diffuse colonic distention is seen, with air-fluid levels, and the diameter reaches 5.5 cm. Bones and Soft Tissues: The pelvic bones and soft tissues are unremarkable. No fractures or abnormal masses are identified. IMPRESSION: Two jejunal segments of intussusception are noted, with no evidence of proximal dilatation or obstruction. This could be transient; however, follow-up and clinical correlation are advised. Diffuse colonic distention is seen, with air-fluid levels, and the diameter reaches 5.5 cm. Possible ileus. Correlate clinically. A few hypodense, nonenhancing hepatic areas are seen, with the largest in segment 8 measuring 9.4 mm. These are likely simple cysts. Ultrasound correlation is suggested. A localized subcutaneous collection is noted in the left inguinal area, measuring 2.3 x 1.9 cm, with calcific foci and an underlying small arterial branch noted. Possible seroma, lymphangioma, versus others. Ultrasound and Doppler correlation are suggested. Electronically Signed by: Garica Franco MD. (08/02/2025 18:15:57 EDT)
[2025-08-02] MEDS: solu-MEDROL 80 MG, Sterile H2O 10 ml 2 ML IV ONE (18:24)
[2025-08-02] MEDS: Sodium Bicarbonate 50 MEQ/50 ML VIAL*** 150 MEQ in Dextrose 5%/Water IV Soln. 1000 ML 1... IV SCH ×2 (18:24→20:36)
--- NOTE | 2025-08-02 18:42 | PCM.DS ---
Discharge Summary Date of Admission: 08/01/25 21:30 Date of Discharge: 08/02/25 Admitting Physician: RIRI AREVALO MD Primary Care Provider: SARI MONTES MD Allergies Allergies acetaminophen [From Darvocet-N] Allergy (Intermediate, Verified 08/01/25 17:10) Hives propoxyphene [From Darvocet-N] Allergy (Intermediate, Verified 08/01/25 17:10) [facility] Summary - Hospital Course Hospital Course: Ms. Jade is a 40-year-old female with stage III melanoma, currently undergoing combination immunotherapy with nivolumab (Opdivo) and ipilimumab (Yervoy), who presented on 08/01/2025 with severe vomiting and profuse watery diarrhea following her third treatment cycle on July 25. She had previously been evaluated in the emergency department earlier in the week, where she received IV fluids and potassium for dehydration and electrolyte imbalance. Despite this, her symptoms intensified, with ongoing diarrhea, poor oral intake, and progressive weakness prompting readmission. On arrival, she appeared volume-depleted and fatigued. Admission labs revealed sodium 134 mmol/L, potassium 2.3 mmol/L, and CO2 19 mmol/L, consistent with metabolic acidosis secondary to gastrointestinal losses and dehydration. Repeat potassium after IV repletion dave only minimally to 2.6 , indicating persistent renal and stool potassium losses. Hemoglobin was elevated at 17.2, consistent with hemoconcentration, while WBC count was markedly elevated at 22.6 , likely reactive to stress and inflammation rather than infection, given her afebrile state and lack of localizing symptoms. TSH was profoundly elevated at 63.092, consistent with untreated hypothyroidism due to missed levothyroxine doses during her vomiting episodes. CT abdomen and pelvis demonstrated two short jejunal segments of intussusception without proximal bowel dilatation or obstruction, suggestive of a transient process. However, clinical correlation and repeat imaging were recommended given the patients ongoing diarrhea and immunotherapy exposure. During hospitalization, she continued to have watery diarrhea but no further emesis. Repeat potassium decreased again to 2.2 despite ongoing aggressive IV repletion. Magnesium was mildly low at 1.8 and was supplemented with IV magnesium sulfate. White blood cell count improved to 15.4 with volume resuscitation. She remained hemodynamically stable and afebrile. 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 Given the severity of her presentation, the need for intensive electrolyte replacement, and anticipated initiation of high-dose corticosteroids and potential biologic immunosuppression, transfer to [facility] ICU was arranged for central line placement, continuous cardiac monitoring, and multidisciplinary oncology management. - Vitals & Intake/Output Vital Signs: Vital Signs Temperature 97.6 F 08/02/25 16:00 Pulse Rate 91 H 08/02/25 16:00 Respiratory Rate 18 08/02/25 16:00 Blood Pressure 132/84 08/02/25 16:00 O2 Sat by Pulse Oximetry 95 08/02/25 16:00 Intake & Output: Intake & Output 07/31/25 08/01/25 08/02/25 08/03/25 11:59 11:59 11:59 11:59 Intake Total 723 60 Balance 723 60 Weight 77.2 kg - Lab Result Diagrams: 08/02/25 05:48 08/02/25 17:25 Lab Results-Last 24 Hrs: Lab Results-Last 24 Hours 08/01/25 08/01/25 08/01/25 Range/Units 17:35 17:35 17:35 WBC (3.98-10.04) x10^3/uL RBC (3.93-5.22) x10^6/uL Hgb (11.2-15.7) g/dL Hct (34.1-44.9) % MCV (79.4-94.8) fL MCH (25.6-32.2) pg MCHC (32.2-35.5) g/dL RDW (11.7-14.4) % Plt Count (182-369) x10^3/uL MPV (9.4-12.3) fL Segmented Neutrophils 67 (34.0-71.1) % Band Neutrophils 15 H (0.0-2.0) % Lymphocytes (Manual) 13 L (19.3-51.7) % Monocytes (Manual) 3 L (4.7-12.5) % Eosinophils (Manual) 2 (0.7-5.8) % Toxic Granulation Platelet Estimate NORMAL (NORMAL) RBC Morphology NORMAL Sodium 134 L (135-145) mmol/L Potassium 2.3 L* (3.5-5.1) mmol/L Chloride 101 (98-107) mmol/L Carbon Dioxide 19 L (22-30) mmol/L Anion Gap 17.2 H (5-15) MEQ/L BUN 12 (7-17) mg/dL Creatinine 1.15 H (0.52-1.04) mg/dL Estimated GFR 61.8 ML/MIN Glucose 139 H (74-106) mg/dL POC Glucometer (74 to 106) mg/dL Lactic Acid (0.4-2.0) Calcium 10.1 (8.4-10.2) mg/dL Magnesium 2.1 (1.6-2.3) mg/dL Total Bilirubin 0.50 (0.2-1.3) mg/dL AST 30 (14-36) U/L ALT 30 (0-35) U/L Alkaline Phosphatase 125 (38-126) U/L NT-Pro-B Natriuret Pep (<300) pg/mL Serum Total Protein 7.4 (6.3-8.2) g/dL Albumin 4.0 (3.5-5.0) g/dL Prealbumin (17.6-36.0) mg/dL Lipase 97 (23-300) U/L Procalcitonin (0.030-0.080) ng/mL Free T4 (0.78-2.19) ng/dL TSH 3rd Generation 63.092 H (0.470-4.680) mIU/L Urine Color (Yellow) Urine Appearance (Clear) Urine pH (4.6-8.0) Ur Specific Cosby (1.005-1.030) Urine Protein (Negative) Urine Glucose (UA) (Negative) mg/dL Urine Ketones (Negative) Urine Blood (Negative) Urine Nitrite (Negative) Urine Bilirubin (Negative) Urine Urobilinogen (0.2) mg/dL Ur Leukocyte Esterase (Negative) U Hyaline Cast (Auto) (0-2) /LPF Urine Microscopic RBC (0-5) /HPF Urine Microscopic WBC (0-5) /HPF Ur Epithelial Cells (None Seen) /HPF Urine Bacteria (None Seen) /HPF Urine Culture Reflexed (NO) C. difficile Screen (NEGATIVE) C.difficile 027-NAP1-B1 (NEGATIVE) 08/01/25 08/01/25 08/01/25 Range/Units 17:35 18:52 21:58 WBC (3.98-10.04) x10^3/uL RBC (3.93-5.22) x10^6/uL Hgb (11.2-15.7) g/dL Hct (34.1-44.9) % MCV (79.4-94.8) fL MCH (25.6-32.2) pg MCHC (32.2-35.5) g/dL RDW (11.7-14.4) % Plt Count (182-369) x10^3/uL MPV (9.4-12.3) fL Segmented Neutrophils (34.0-71.1) % Band Neutrophils (0.0-2.0) % Lymphocytes (Manual) (19.3-51.7) % Monocytes (Manual) (4.7-12.5) % Eosinophils (Manual) (0.7-5.8) % Toxic Granulation Platelet Estimate (NORMAL) RBC Morphology Sodium 134 L (135-145) mmol/L Potassium 2.6 L* (3.5-5.1) mmol/L Chloride 107 (98-107) mmol/L Carbon Dioxide 19 L (22-30) mmol/L Anion Gap 10.6 (5-15) MEQ/L BUN 11 (7-17) mg/dL Creatinine 0.98 (0.52-1.04) mg/dL Estimated GFR 74.8 ML/MIN Glucose 108 H (74-106) mg/dL POC Glucometer (74 to 106) mg/dL Lactic Acid (0.4-2.0) Calcium 8.4 D (8.4-10.2) mg/dL Magnesium (1.6-2.3) mg/dL Total Bilirubin 0.30 (0.2-1.3) mg/dL AST 24 (14-36) U/L ALT 24 (0-35) U/L Alkaline Phosphatase 90 (38-126) U/L NT-Pro-B Natriuret Pep (<300) pg/mL Serum Total Protein 5.6 L (6.3-8.2) g/dL Albumin 2.9 L (3.5-5.0) g/dL Prealbumin (17.6-36.0) mg/dL Lipase (23-300) U/L Procalcitonin (0.030-0.080) ng/mL Free T4 0.23 L (0.78-2.19) ng/dL TSH 3rd Generation (0.470-4.680) mIU/L Urine Color Yellow (Yellow) Urine Appearance Cloudy A (Clear) Urine pH 6.0 (4.6-8.0) Ur Specific Cosby 1.020 (1.005-1.030) Urine Protein 30 (Negative) Urine Glucose (UA) Negative (Negative) mg/dL Urine Ketones Trace A (Negative) Urine Blood Large A (Negative) Urine Nitrite Negative (Negative) Urine Bilirubin Negative (Negative) Urine Urobilinogen 0.2 (0.2) mg/dL Ur Leukocyte Esterase Negative (Negative) U Hyaline Cast (Auto) 3-5 A (0-2) /LPF Urine Microscopic RBC >100 A (0-5) /HPF Urine Microscopic WBC 6-10 A (0-5) /HPF Ur Epithelial Cells Moderate A (None Seen) /HPF Urine Bacteria Few A (None Seen) /HPF Urine Culture Reflexed YES (NO) C. difficile Screen (NEGATIVE) C.difficile 027-NAP1-B1 (NEGATIVE) 08/01/25 08/02/25 08/02/25 Range/Units 22:37 05:48 05:48 WBC 15.4 H (3.98-10.04) x10^3/uL RBC 4.47 (3.93-5.22) x10^6/uL Hgb 13.0 D (11.2-15.7) g/dL Hct 38.4 (34.1-44.9) % MCV 85.9 (79.4-94.8) fL MCH 29.1 (25.6-32.2) pg MCHC 33.9 (32.2-35.5) g/dL RDW 15.5 H (11.7-14.4) % Plt Count 314 (182-369) x10^3/uL MPV 9.8 (9.4-12.3) fL Segmented Neutrophils 62 (34.0-71.1) % Band Neutrophils 24 H (0.0-2.0) % Lymphocytes (Manual) 12 L (19.3-51.7) % Monocytes (Manual) 2 L (4.7-12.5) % Eosinophils (Manual) (0.7-5.8) % Toxic Granulation 2+ Platelet Estimate NORMAL (NORMAL) RBC Morphology Sodium 135 (135-145) mmol/L Potassium 2.2 L* (3.5-5.1) mmol/L Chloride 110 H (98-107) mmol/L Carbon Dioxide 17 L (22-30) mmol/L Anion Gap 11.2 (5-15) MEQ/L BUN 11 (7-17) mg/dL Creatinine 0.87 (0.52-1.04) mg/dL Estimated GFR 86.3 ML/MIN Glucose 88 (74-106) mg/dL POC Glucometer (74 to 106) mg/dL Lactic Acid (0.4-2.0) Calcium 8.2 L (8.4-10.2) mg/dL Magnesium 1.9 (1.6-2.3) mg/dL Total Bilirubin (0.2-1.3) mg/dL AST (14-36) U/L ALT (0-35) U/L Alkaline Phosphatase (38-126) U/L NT-Pro-B Natriuret Pep 99.5 (<300) pg/mL Serum Total Protein (6.3-8.2) g/dL Albumin (3.5-5.0) g/dL Prealbumin 8.87 L (17.6-36.0) mg/dL Lipase (23-300) U/L Procalcitonin (0.030-0.080) ng/mL Free T4 (0.78-2.19) ng/dL TSH 3rd Generation (0.470-4.680) mIU/L Urine Color (Yellow) Urine Appearance (Clear) Urine pH (4.6-8.0) Ur Specific Cosby (1.005-1.030) Urine Protein (Negative) Urine Glucose (UA) (Negative) mg/dL Urine Ketones (Negative) Urine Blood (Negative) Urine Nitrite (Negative) Urine Bilirubin (Negative) Urine Urobilinogen (0.2) mg/dL Ur Leukocyte Esterase (Negative) U Hyaline Cast (Auto) (0-2) /LPF Urine Microscopic RBC (0-5) /HPF Urine Microscopic WBC (0-5) /HPF Ur Epithelial Cells (None Seen) /HPF Urine Bacteria (None Seen) /HPF Urine Culture Reflexed (NO) C. difficile Screen (NEGATIVE) C.difficile 027-NAP1-B1 (NEGATIVE) 08/02/25 08/02/25 08/02/25 Range/Units 05:48 08:20 12:20 WBC (3.98-10.04) x10^3/uL RBC (3.93-5.22) x10^6/uL Hgb (11.2-15.7) g/dL Hct (34.1-44.9) % MCV (79.4-94.8) fL MCH (25.6-32.2) pg MCHC (32.2-35.5) g/dL RDW (11.7-14.4) % Plt Count (182-369) x10^3/uL MPV (9.4-12.3) fL Segmented Neutrophils (34.0-71.1) % Band Neutrophils (0.0-2.0) % Lymphocytes (Manual) (19.3-51.7) % Monocytes (Manual) (4.7-12.5) % Eosinophils (Manual) (0.7-5.8) % Toxic Granulation Platelet Estimate (NORMAL) RBC Morphology Sodium (135-145) mmol/L Potassium (3.5-5.1) mmol/L Chloride (98-107) mmol/L Carbon Dioxide (22-30) mmol/L Anion Gap (5-15) MEQ/L BUN (7-17) mg/dL Creatinine (0.52-1.04) mg/dL Estimated GFR ML/MIN Glucose (74-106) mg/dL POC Glucometer 109 H (74 to 106) mg/dL Lactic Acid (0.4-2.0) Calcium (8.4-10.2) mg/dL Magnesium 1.8 (1.6-2.3) mg/dL Total Bilirubin (0.2-1.3) mg/dL AST (14-36) U/L ALT (0-35) U/L Alkaline Phosphatase (38-126) U/L NT-Pro-B Natriuret Pep (<300) pg/mL Serum Total Protein (6.3-8.2) g/dL Albumin (3.5-5.0) g/dL Prealbumin (17.6-36.0) mg/dL Lipase (23-300) U/L Procalcitonin (0.030-0.080) ng/mL Free T4 (0.78-2.19) ng/dL TSH 3rd Generation (0.470-4.680) mIU/L Urine Color (Yellow) Urine Appearance (Clear) Urine pH (4.6-8.0) Ur Specific Cosby (1.005-1.030) Urine Protein (Negative) Urine Glucose (UA) (Negative) mg/dL Urine Ketones (Negative) Urine Blood (Negative) Urine Nitrite (Negative) Urine Bilirubin (Negative) Urine Urobilinogen (0.2) mg/dL Ur Leukocyte Esterase (Negative) U Hyaline Cast (Auto) (0-2) /LPF Urine Microscopic RBC (0-5) /HPF Urine Microscopic WBC (0-5) /HPF Ur Epithelial Cells (None Seen) /HPF Urine Bacteria (None Seen) /HPF Urine Culture Reflexed (NO) C. difficile Screen NEGATIVE (NEGATIVE) C.difficile 027-NAP1-B1 PRESUMPTIVE NEGATIVE (NEGATIVE) 08/02/25 08/02/25 08/02/25 Range/Units 12:26 12:26 13:45 WBC (3.98-10.04) x10^3/uL RBC (3.93-5.22) x10^6/uL Hgb (11.2-15.7) g/dL Hct (34.1-44.9) % MCV (79.4-94.8) fL MCH (25.6-32.2) pg MCHC (32.2-35.5) g/dL RDW (11.7-14.4) % Plt Count (182-369) x10^3/uL MPV (9.4-12.3) fL Segmented Neutrophils (34.0-71.1) % Band Neutrophils (0.0-2.0) % Lymphocytes (Manual) (19.3-51.7) % Monocytes (Manual) (4.7-12.5) % Eosinophils (Manual) (0.7-5.8) % Toxic Granulation Platelet Estimate (NORMAL) RBC Morphology Sodium 137 (135-145) mmol/L Potassium 2.3 L* (3.5-5.1) mmol/L Chloride 109 H (98-107) mmol/L Carbon Dioxide 19 L (22-30) mmol/L Anion Gap 11.2 (5-15) MEQ/L BUN 10 (7-17) mg/dL Creatinine 0.99 (0.52-1.04) mg/dL Estimated GFR 73.9 ML/MIN Glucose 115 H (74-106) mg/dL POC Glucometer (74 to 106) mg/dL Lactic Acid 1.3 (0.4-2.0) Calcium 8.4 (8.4-10.2) mg/dL Magnesium (1.6-2.3) mg/dL Total Bilirubin 0.30 (0.2-1.3) mg/dL AST 21 (14-36) U/L ALT 22 (0-35) U/L Alkaline Phosphatase 109 (38-126) U/L NT-Pro-B Natriuret Pep (<300) pg/mL Serum Total Protein 5.8 L (6.3-8.2) g/dL Albumin 3.0 L (3.5-5.0) g/dL Prealbumin (17.6-36.0) mg/dL Lipase (23-300) U/L Procalcitonin 0.157 H (0.030-0.080) ng/mL Free T4 (0.78-2.19) ng/dL TSH 3rd Generation (0.470-4.680) mIU/L Urine Color (Yellow) Urine Appearance (Clear) Urine pH (4.6-8.0) Ur Specific Cosby (1.005-1.030) Urine Protein (Negative) Urine Glucose (UA) (Negative) mg/dL Urine Ketones (Negative) Urine Blood (Negative) Urine Nitrite (Negative) Urine Bilirubin (Negative) Urine Urobilinogen (0.2) mg/dL Ur Leukocyte Esterase (Negative) U Hyaline Cast (Auto) (0-2) /LPF Urine Microscopic RBC (0-5) /HPF Urine Microscopic WBC (0-5) /HPF Ur Epithelial Cells (None Seen) /HPF Urine Bacteria (None Seen) /HPF Urine Culture Reflexed (NO) C. difficile Screen (NEGATIVE) C.difficile 027-NAP1-B1 (NEGATIVE) 08/02/25 08/02/25 Range/Units 15:58 17:25 WBC (3.98-10.04) x10^3/uL RBC (3.93-5.22) x10^6/uL Hgb (11.2-15.7) g/dL Hct (34.1-44.9) % MCV (79.4-94.8) fL MCH (25.6-32.2) pg MCHC (32.2-35.5) g/dL RDW (11.7-14.4) % Plt Count (182-369) x10^3/uL MPV (9.4-12.3) fL Segmented Neutrophils (34.0-71.1) % Band Neutrophils (0.0-2.0) % Lymphocytes (Manual) (19.3-51.7) % Monocytes (Manual) (4.7-12.5) % Eosinophils (Manual) (0.7-5.8) % Toxic Granulation Platelet Estimate (NORMAL) RBC Morphology Sodium 137 (135-145) mmol/L Potassium 2.3 L* (3.5-5.1) mmol/L Chloride 109 H (98-107) mmol/L Carbon Dioxide 16 L* (22-30) mmol/L Anion Gap 14.6 (5-15) MEQ/L BUN 9 (7-17) mg/dL Creatinine 0.96 (0.52-1.04) mg/dL Estimated GFR 76.7 ML/MIN Glucose 104 (74-106) mg/dL POC Glucometer 87 (74 to 106) mg/dL Lactic Acid (0.4-2.0) Calcium 8.4 (8.4-10.2) mg/dL Magnesium (1.6-2.3) mg/dL Total Bilirubin (0.2-1.3) mg/dL AST (14-36) U/L ALT (0-35) U/L Alkaline Phosphatase (38-126) U/L NT-Pro-B Natriuret Pep (<300) pg/mL Serum Total Protein (6.3-8.2) g/dL Albumin (3.5-5.0) g/dL Prealbumin (17.6-36.0) mg/dL Lipase (23-300) U/L Procalcitonin (0.030-0.080) ng/mL Free T4 (0.78-2.19) ng/dL TSH 3rd Generation (0.470-4.680) mIU/L Urine Color (Yellow) Urine Appearance (Clear) Urine pH (4.6-8.0) Ur Specific Cosby (1.005-1.030) Urine Protein (Negative) Urine Glucose (UA) (Negative) mg/dL Urine Ketones (Negative) Urine Blood (Negative) Urine Nitrite (Negative) Urine Bilirubin (Negative) Urine Urobilinogen (0.2) mg/dL Ur Leukocyte Esterase (Negative) U Hyaline Cast (Auto) (0-2) /LPF Urine Microscopic RBC (0-5) /HPF Urine Microscopic WBC (0-5) /HPF Ur Epithelial Cells (None Seen) /HPF Urine Bacteria (None Seen) /HPF Urine Culture Reflexed (NO) C. difficile Screen (NEGATIVE) C.difficile 027-NAP1-B1 (NEGATIVE) Micro Results-Entire Visit: Accuchecks Date 08/02/25 Date 08/02/25 - Radiology Exams Ordered Rad Exams-Entire Visit: Radiology Procedures Category Date Time Status ABDOMEN AND PELVIS W CONTRAST [CT] Stat Exams 08/02/25 16:09 Completed - Procedures and Test Procedures and Tests throughout Hospitalization: Therapy Orders & Screens 08/02/25 10:09 EKG STAT Comment: Diagnosis: Hyperemesis Discharge Exam General Appearance: no apparent distress Neurologic Exam: alert, oriented x 3, cooperative Eye Exam: PERRL Ears, Nose, Throat Exam: normal ENT inspection Neck Exam: normal inspection Respiratory Exam: normal breath sounds, lungs clear Cardiovascular Exam: regular rate/rhythm, normal heart sounds Gastrointestinal/Abdomen Exam: soft, normal bowel sounds, tenderness Pelvic Exam: deferred Rectal Exam: deferred Back Exam: normal inspection Extremity Exam: normal inspection Skin Exam: normal color Wound Assessment: Skin/Wound Assessment Wound/Incision Assessment Start: 08/01/25 22:22 Text: Status: Active Freq: Q6H Protocol: Document 08/02/25 04:22 (Rec: 08/02/25 05:20 [id number]) Wound/Incision Assessment Right Lower Medial Ankle Wound Assessment Shift Assessment Wound Type Abrasion Dressing Status Dry & Intact General Appearance Well Approximated,Open to air, Clean/Dry Surrounding Tissue [place] Final Diagnosis/Problem List - Final Discharge Diagnosis/Problem (1) Vomiting and diarrhea Current Visit: Yes Status: Acute Assessment & Plan: Most likely Immune-related toxicity following third cycle of combined nivolumab/ipilimumab immunotherapy. CT abdomen with two jejunal intussusceptions, likely transient; consistent with immune-mediated enteritis. Initiated IV methylprednisolone 80 mg daily (ASCO/NCCN Immunotherapy Toxicity Guidelines, 2023). Hold all further immunotherapy until oncology reassessment. Continue IV fluids, strict intake/output, and daily weights. Clear liquid diet, advance as tolerated. Stool studies pending to exclude infection. GI and oncology consults upon arrival to receiving facility. Transfer to ICU for close hemodynamic and electrolyte monitoring. Code(s): R11.10 - VOMITING, UNSPECIFIED; R19.7 - DIARRHEA, UNSPECIFIED (2) Hypokalemia Current Visit: Yes Status: Acute Assessment & Plan: Potassium arie: 2.2 despite multiple IV replacements. Ongoing gastrointestinal losses contributing to refractory hypokalemia. Continue IV potassium chloride replacement per protocol, transition to oral once tolerated. Replete magnesium to >2.0 to facilitate potassium uptake. Continuous telemetry recommended given risk for arrhythmia. Central line placement at receiving facility for high-concentration IV electrolyte administration. Maintain K >4.0 Code(s): E87.6 - HYPOKALEMIA (3) Leukocytosis (leucocytosis) Current Visit: Yes Status: Acute Assessment & Plan: Admission WBC 22.6 , downtrending to 15.4 with hydration. No fever, chills, or localizing infection. Continue daily CBC monitoring. No empiric antibiotics indicated at present; reassess if febrile or septic physiology develops. Code(s): D72.829 - ELEVATED WHITE BLOOD CELL COUNT, UNSPECIFIED (4) Hypothyroidism Current Visit: Yes Status: Acute Assessment & Plan: TSH markedly elevated at 63.092 ?IU/mL due to missed levothyroxine. Resume levothyroxine 50 mcg PO daily once oral intake tolerated. If unable to tolerate PO >72 hours, administer IV levothyroxine at 5075% of oral dose. Repeat TSH and free T4 in 46 weeks to reassess adequacy of replacement. Expect gradual improvement in energy and mental clarity as euthyroidism is restored. Disposition: Transferred to [facility] ICU for higher-level care, oncology- directed management of immune-mediated colitis, and advanced electrolyte and hemodynamic support. Condition at Transfer: Guarded but hemodynamically stable, alert, and oriented. Follow-up: Oncology, gastroenterology, and endocrinology consults to be coordinated immediately upon arrival. Code(s): E03.9 - HYPOTHYROIDISM, UNSPECIFIED - Discharge Discharge Date: 08/02/25 Disposition: DC TO [facility] Condition: Stable Prescriptions: New Pantoprazole 40 mg [Protonix 40 mg IV] 40 mg IV DAILY Methylprednis Sod Succ 125 mg* [solu-MEDROL] 80 mg IV DAILY Continue ondansetron HCL [Ondansetron HCl] 8 mg PO Q8H PRN PRN PRN Reason: Nausea ALPRAZolam [Alprazolam] 0.5 mg PO TID PRN PRN Reason: Anxiety Potassium Chloride 20 meq PO DAILY Levothyroxine Sodium 50 Mcg [Synthroid 50 Mcg] 50 mcg PO DAILY Lactobacillus Rhamnosus GG [Culturelle] 1 cap PO DAILY PRN PRN PRN Reason: Diarrhea Discontinued Ibuprofen 200 mg [Motrin 200 mg] 200 mg PO Q6H PRN PRN PRN Reason: Pain Loperamide HCl [Imodium A-D] 2 mg PO DAILY PRN PRN PRN Reason: Diarrhea Follow up with: SARI MONTES MD [Primary Care Provider, ONCOLOGY] Forms: Ambulance Transport Record, Transfer Record [employer]
[2025-08-02 19:31] VITALS: TEMP 98.2
[2025-08-02] MEDS: [UNRECOGNIZED DRUG - OTHER] IV SCH (20:36)
[2025-08-02] MEDS: SODIUM BICARBONATE IV SCH (20:36)
[2025-08-02] MEDS: POTASSIUM CHLORIDE IV SCH (20:36)
[2025-08-02 21:53] LABS: Calcium 8.0 mg/dL (8.4-10.2); Creatinine 1 0.89 mg/dL (0.52-1.04); EST GLOMERULAR FILTRATION RATE 84.0 ML/MIN; Glucose 156.0 mg/dL (74-106)
[2025-08-02 22:02] LABS: Carbon Dioxide 16.0 mmol/L (22-30); Potassium 2.7 mmol/L (3.5-5.1)
[2025-08-02 23:30] VITALS: BP 115/64; PULSE 86; RESP 16; O2SAT 95
[2025-08-02] MEDS ORDERED: Magnesium 1 Gm / 100 Ml D5W*** 100 ML IV ONE (23:50)
[2025-08-03] MEDS ORDERED: POTASSIUM CHLORIDE 20 mEq IN WATER 100ML 100 ML IV ONE (00:37)
[2025-08-03] MEDS: POTASSIUM CHLORIDE 20 mEq IN WATER 100ML 20 MEQ/100 ML BAG IV SCH (00:41)
[2025-08-03] MEDS: Magnesium Sulfate 1 GM/2 ML VIAL IV STA (01:13)
[2025-08-03] MEDS ORDERED: solu-MEDROL 80 MG, Sterile H2O 10 ml 2 ML IV SCH (10:00)
== END 2025-08-03 01:59 | disposition home or self-care (01) ==
LOC: ED 16:58 → MED SURG 21:30
PROVIDERS: ADMIT Internal Medicine; ATTEND Internal Medicine
DX: R11.10 Vomiting, unspecified (principal); R19.7 Diarrhea, unspecified; E87.6 Hypokalemia; D72.829 Elevated white blood cell count, unspecified; E03.9 Hypothyroidism, unspecified; Z79.899 Other long term (current) drug therapy